=== PATIENT | female | born 1930 | race Caucasian/White ===

== ENCOUNTER 2019-04-29 10:31 | Inpatient (IN) ==
[2019-04-29] MEDS ORDERED: MOM Conc 10 ML UD.LIQ PO PRN (15:27)
[2019-04-29] MEDS ORDERED: Naloxone 0.4 MG/ML INJ IVP PRN (15:27)
[2019-04-29] MEDS ORDERED: Ondansetron 4 MG/2 ML VIAL IVP PRN (15:27)
--- NOTE | 2019-04-29 15:38 | Orthopedic Consult Note ---
Date of Encounter: 04/29/19 Time of Encounter: 15:30 Assessment and Plan (1) Fracture of humerus, proximal, right, closed Current Visit: Yes Status: Acute Qualifiers: Encounter type: initial encounter Fracture morphology: other fracture Fracture alignment: displaced Qualified Code(s): S42.291A - Other displaced fracture of upper end of right humerus, initial encounter for closed fracture (2) Left elbow pain Current Visit: Yes Status: Acute (3) Left shoulder pain Current Visit: Yes Status: Acute Qualifiers: Chronicity: acute Qualified Code(s): M25.512 - Pain in left shoulder History of Present Illness Chief complaint: right arm pain HPI: Ms. Oconnor is a 88 year old female presenting to [facility] from [facility] in [place]. Her niece (KARISSA) is at bedside. Per niece's report, patient was admitted to [facility] for UTI and diverticulitis. She relates she was just discharged two weeks ago from [place] after a course of rehabilitation following diagnosis of these same conditions. She relates that earlier today patient was on commode and staff were beside her when she had a seizure. Per niece, staff held her upright until seizure resolved and while placing patient back to bed her right arm was dislocated and subsequently found to be fractured. Patient's niece states that she has had a a fracture of her left arm at some point requiring surgical fixation in the remote past. She also relates patient has a history of open heart surgery. She states patient is ne stephanie non-ambulatory and has not had a seizure in a very long time. Patient is a poor historian and not able to speak much though is able to shake head yes and no. She is hard of hearing. In discussion directly with patient, she relates that both of her arms are in pain at present. She denies a history of stroke. She admits to having difficulty finding her words. On exam, patient is lying comfortably in bed. Right arm in simple sling. No gross deformity noted to the right arm on visual inspection. Palpation reveals exquisite tenderness to the right upper arm. Hand and wrist motion intact. Bulk Loader strength equal bilaterally. Left arm inspection reveals large ecchymosis over the left elbow nearly circumferentially. No skin disruption noted. Tender to palpation over the left olecranon region and left anterior shoulder. Motion of left elbow and shoulder are limited with patient grimacing in pain with motion. Pronation/supination of left wrist leads to grimacing. Hand motion intact. No calf tenderness, erythema, or warmth to palpation bilaterally. Neurovascualrly intact with intact ankle motion to bilateral ankles. Patient seen at bedside with Dr. Sravan Carrizales. Patient will require cardiac consultation. Case discussed with Dr. Gonzales. Patient has an operative right displaced humerus fracture. Recommendation for reverse total shoulder replacement of the right shoulder. Informed consent reviewed and obtained from patient's niece who is her POA after all questions and concerns were addressed to her satisfaction. Patient will be NPO after midnight 8/15 in anticipation of surgical intervention for her right shoulder. Xrays of the left shoulder and elbow will be obtained as patient is expressing pain of this region. Thank you for this consultation. Please reach out with any questions or concerns regarding patient's orthopedic care. Past Med Surg Social Fam HX - Family History Mother Hx Family Cardiac Disorders: Yes (CABG) Medications and Allergies Ferrous Sulfate [Iron] 325 mg PO DAILY 04/29/19 [History] LORazepam [Ativan] 0.5 mg PO DAILY PRN 04/29/19 [History] Metoprolol Tartrate 25 mg PO BID 04/29/19 [History] Pantoprazole Sodium [Protonix] 40 mg PO DAILY 04/29/19 [History] Phenytoin Sodium Extended [Phenytek] 100 mg PO BID 04/29/19 [History] Sertraline HCl [Zoloft] 50 mg PO DAILY 04/29/19 [History] Allergy/AdvReac Type Severity Reaction Status Date / Time alendronate sodium Allergy See Verified 04/29/19 16:17 [From Fosamax] Comments atorvastatin [From Lipitor] Allergy See Verified 04/29/19 16:17 Comments ibandronate sodium Allergy See Verified 04/29/19 16:17 [From Boniva] Comments morphine Allergy See Verified 04/29/19 16:17 Comments Penicillins Allergy See Verified 04/29/19 16:17 Comments Procaine [From Novocain] Allergy See Verified 04/29/19 16:17 Comments simvastatin [From Zocor] Allergy See Verified 04/29/19 16:17 Comments Sulfa (Sulfonamide Allergy See Verified 04/29/19 16:17 Antibiotics) Comments tuberculin,PPD,multi-puncture Allergy See Verified 04/29/19 16:17 Comments All Systems Reviewed: The remainder of the systems were reviewed and are negative Physical Exam - Constitutional Vitals: Temp Pulse Resp BP Pulse Ox 98.0 F 60 14 95/59 93 04/29/19 15:23 04/29/19 15:23 04/29/19 15:23 04/29/19 15:23 04/29/19 15:23 Results - Labs Result Diagrams: 04/30/19 04:38 04/30/19 04:38 Labs: All other labs normal. Consult Discharge Plan - Plan Referrals: NONE,PCP [Primary Care Provider] -
[2019-04-29] MEDS ORDERED: *HR* LORazepam 0.5 MG TABLET PO PRN (17:00)
--- NOTE | 2019-04-29 18:01 | Internal Med History&Physical ---
Date of Encounter: 04/29/19 Time of Encounter: 16:30 Internal Medicine - H&P: HPI Chief complaint: Broken arm Admitted From: Hospital to Hospital Transfer Plans for Post Hospital Care: Transfer [facility] Facility History of present illness: Ms. Oconnor is a 88 year old female transferred from [facility] with fracture R humerus. Ms Oconnor was admitted to [facility] due to acute UTI and diverticulitis. She had been improving but today got up to bedside commode and had an acute seizure. She has previous hx of seizures but has not had an event in a while. Dilantin levels noted to be low. Niece stated that when she was moved back to her bed she developed R arm pain and was found to have fracture of R humerus with dislocation. She was transferred for repair. At this time she is resting in bed. Her niece stated she had symptoms of GERD and reflux but is unsure of chest pain. Patient unable to give much history at this time. She has hx of chronic a fib on no anticoagulation. Labs from [facility] - UA negative, Urine cx Klebsiella S to Cipro, Hgb 13.3 today. WBC 13 today. Past Med Surg Social Fam HX - Past Medical History Source: patient, old records reviewed Medical history: arthritis, atrial fibrillation, GERD, hyperlipidemia, hypertension, osteoporosis, RA, TIA Additional medical history: Diverticulitis, seizures, UTI, tremors, unsure of + TB test but not active. Psychiatric history: anxiety - Past Surgical History Surgical History: angioplasty/stent, appendectomy, cataract, cholecystectomy, coronary bypass (CABG), hysterectomy, FLORENCE/BSO Additional surgical history: Left shoulder surgery - Social History Smoking Status: Former smoker Smokeless Tobacco Status: No Alcohol use: none Drug use: none - Family History Mother Hx Family Cardiac Disorders: Yes (CABG) Internal Medicine - H&P: Meds Ferrous Sulfate [Iron] 325 mg PO DAILY 04/29/19 [History] LORazepam [Ativan] 0.5 mg PO DAILY PRN 04/29/19 [History] Metoprolol Tartrate 25 mg PO BID 04/29/19 [History] Pantoprazole Sodium [Protonix] 40 mg PO DAILY 04/29/19 [History] Phenytoin Sodium Extended [Phenytek] 100 mg PO BID 04/29/19 [History] Sertraline HCl [Zoloft] 50 mg PO DAILY 04/29/19 [History] Allergy/AdvReac Type Severity Reaction Status Date / Time alendronate sodium Allergy See Verified 04/29/19 16:17 [From Fosamax] Comments atorvastatin [From Lipitor] Allergy See Verified 04/29/19 16:17 Comments ibandronate sodium Allergy See Verified 04/29/19 16:17 [From Boniva] Comments morphine Allergy See Verified 04/29/19 16:17 Comments Penicillins Allergy See Verified 04/29/19 16:17 Comments Procaine [From Novocain] Allergy See Verified 04/29/19 16:17 Comments simvastatin [From Zocor] Allergy See Verified 04/29/19 16:17 Comments Sulfa (Sulfonamide Allergy See Verified 04/29/19 16:17 Antibiotics) Comments tuberculin,PPD,multi-puncture Allergy See Verified 04/29/19 16:17 Comments ROS unobtainable: due to mental status All Systems PM: A 10-system review of systems was performed and is negative for pertinent findings except as documented above in the HPI. - Constitutional Constitutional: lethargy - EENT Eyes: no diplopia, no pain Ears: decreased hearing Nose, mouth and throat: no mouth pain, no sinus pain - Cardiovascular Cardiovascular ROS IM: dyspnea, no chest pain, no lightheadedness - Respiratory Respiratory: dyspnea, dyspnea on exertion, chest congestion - Gastrointestinal Gastrointestinal: abdominal pain, no diarrhea, no melena, no nausea, no vomiting - Genitourinary Genitourinary: dysuria, urinary incontinence - Musculoskeletal Musculoskeletal ROS IM: arthralgias, no joint swelling - Integumentary Integumentary IM: no erythema, no rash - Neurological Neurological ROS: convulsions, no weakness - Endocrine Endocrine IM: no excessive sweating - Hematologic/Lymphatic Hematologic/Lymphatic: no easy bleeding - Allergic/Immunologic Allergic/Immunologic: no tongue swelling - Constitutional Vitals: Temp Pulse Resp BP Pulse Ox 98.0 F 60 14 95/59 93 04/29/19 15:23 04/29/19 15:23 04/29/19 15:23 04/29/19 15:23 04/29/19 15:23 General appearance: Present: A&O X 3 Exam: See below. pt hard to hear and understand - Head Head exam: Present: normocephalic - Eye Eye exam: Present: EOMI, conjuntiva pink - ENT ENT exam: Present: mucous membranes dry - Neck Neck exam general surgery: Present: normal inspection, supple - Respiratory Respiratory exam: Present: rales (anteriorly). Absent: rhonchi, wheezes - Cardiovascular Cardiovascular exam: Present: irregular rhythm - GI/Abdominal GI/Abdominal exam: Present: soft, tenderness (diffuse worse in LL) - Extremities Exam Extremities exam: Present: warm Additional comments: Ecchymosis and tenderness bilateral UE - Neurological Exam Neurological exam: Present: alert - Skin Skin exam: Present: warm. Absent: rash - Assessment and Plan (1) Fracture of humerus, proximal, right, closed Current Visit: Yes Status: Acute Assessment and plan: Pt transferred from [facility] due to acute fracture of R humerus with displacement. Admit to med surg. Ortho eval. Will need surgical treatment. Will ask cardiology for input regarding clearance. Pain control. Sling. Further plan per ortho. Qualifiers: Encounter type: initial encounter Fracture morphology: other fracture Fracture alignment: displaced Qualified Code(s): S42.291A - Other displaced fracture of upper end of right humerus, initial encounter for closed fracture (2) Seizure disorder Current Visit: Yes Status: Chronic Assessment and plan: Pt had acute seizure at [facility] - dilantin level low and was on quinolone (? low seizure threshold) Loaded with IV Dilantin and dose increased. (3) Atrial fibrillation Current Visit: Yes Status: Chronic Assessment and plan: Currently rate controlled. Not on anticoagulation. Cardiology eval pre op. Echo ordered. Qualifiers: Atrial fibrillation type: chronic Qualified Code(s): I48.2 - Chronic atrial fibrillation (4) UTI (urinary tract infection) Current Visit: Yes Status: Acute Assessment and plan: Pt recently diagnoses with Klebsiella UTI. Will repeat UA/C&S Qualifiers: Urinary tract infection type: acute cystitis Hematuria presence: without hematuria Qualified Code(s): N30.00 - Acute cystitis without hematuria (5) Acute diverticulitis Current Visit: Yes Status: Acute Assessment and plan: Pt has been on Cipro/Flagyl Consider rescan to reassess. (6) Hypertension Current Visit: Yes Status: Chronic Assessment and plan: Continue home meds. Qualifiers: Hypertension type: essential hypertension Qualified Code(s): I10 - Essential (primary) hypertension (7) GERD (gastroesophageal reflux disease) Current Visit: Yes Status: Chronic Assessment and plan: Continue PPI Qualifiers: Esophagitis presence: esophagitis presence not specified Qualified Code(s): K21.9 - Gastro-esophageal reflux disease without esophagitis - Time Spent With Patient Total time spent is greater than 50% in coordination of care (as documented) at patient's floor/unit and/or counseling patient:
[2019-04-29] MEDS ORDERED: *HR* Heparin 5,000 UNIT/ML VIAL SQ SCH (18:47)
--- NOTE | 2019-04-29 19:35 | Anesthesia Evaluation PreOp ---
Date of Encounter: 04/29/19 Time of Encounter: 19:44 - Past History Planned Operation: R-Total shoulder Cardiac History: HTN, Hyperlipidemia, Arrhythmia (Chronic AFib. NOT anticoagulated), Cardiac Surgery (1992) Pulmonary History: Former smoker [employer]IAN History: Seizures (Hx Sz. Acute Seizure while at Bedside commode [[facility]] transferred here to [facility] for surgical repair R-humerus note after Seizure), TIA, Other (PT VERY HARD OF HEARING) Other Medical History: Renal (newly Dx Klebsiella UTI [this admission]), GERD, Other (RA) Anesthesia History: No Prior Anesthetic Complications, Past Anesthesia (Angioplasty/Stent, Appy, Cataract, Brittney, CABG, FLORENCE/BSO, L-shoulder surgery), Problems (NOVACAINE ALLERGY. PT UNSURE OF REACTION) Alcohol Use: none Drug use: none Medications and Allergies Ferrous Sulfate [Iron] 325 mg PO DAILY 04/29/19 [History] LORazepam [Ativan] 0.5 mg PO DAILY PRN 04/29/19 [History] Metoprolol Tartrate 25 mg PO BID 04/29/19 [History] Pantoprazole Sodium [Protonix] 40 mg PO DAILY 04/29/19 [History] Phenytoin Sodium Extended [Phenytek] 100 mg PO BID 04/29/19 [History] Sertraline HCl [Zoloft] 50 mg PO DAILY 04/29/19 [History] Allergy/AdvReac Type Severity Reaction Status Date / Time alendronate sodium Allergy See Verified 04/29/19 16:17 [From Fosamax] Comments atorvastatin [From Lipitor] Allergy See Verified 04/29/19 16:17 Comments ibandronate sodium Allergy See Verified 04/29/19 16:17 [From Boniva] Comments morphine Allergy See Verified 04/29/19 16:17 Comments Penicillins Allergy See Verified 04/29/19 16:17 Comments Procaine [From Novocain] Allergy See Verified 04/29/19 16:17 Comments simvastatin [From Zocor] Allergy See Verified 04/29/19 16:17 Comments Sulfa (Sulfonamide Allergy See Verified 04/29/19 16:17 Antibiotics) Comments tuberculin,PPD,multi-puncture Allergy See Verified 04/29/19 16:17 Comments - Meds/Allergy Pre-op Review Medications Reviewed: Yes Allergies Reviewed: Yes Beta Blockers on Current Med List: Yes (Metoprolol) Anesthesia Results - Labs Impressions Elbow X-Ray 04/29/19 16:45 IMPRESSION: Left shoulder: Inferior displacement of the distal clavicle relative to the acromion, raising the possibility of an AC injury. No acute fracture or dislocation is seen otherwise. Left elbow: Negative. D/ / William Urrutia MD / William Urrutia MD Interpreting Provider: William Urrutia MD Shoulder X-Ray 04/29/19 16:45 IMPRESSION: Left shoulder: Inferior displacement of the distal clavicle relative to the acromion, raising the possibility of an AC injury. No acute fracture or dislocation is seen otherwise. Left elbow: Negative. D/ / William Urrutia MD / William Urrutia MD Interpreting Provider: William Urrutia MD Anesthesia Exam Vital Signs Temp Pulse Resp BP Pulse Ox 04/29/19 19:35 97.7 F 63 16 116/64 93 04/29/19 15:23 98.0 F 60 14 95/59 93 Intake and Output 04/29/19 04/29/19 04/29/19 07:59 15:59 23:59 Other: Weight 68.8 kg Patient Weight 04/29/19 23:59 Weight 68.8 kg Height: 5'2" Weight: 151# BMI = 28 NPO (# of Hours): MNoc - HEENT Pupil (Motor): Pupils equal, EOMI - [employer] LOC: Oriented [employer] Motor: Normal RUE, Normal LUE, Normal RLE, Normal LLE, Normal Face [employer] Sensory: Normal: RUE, LUE, RLE, LLE, Face - Cardiac Rhythm: Irregular Murmur: None JVD: No - Pulmonary Breath Sounds: bilateral Clear (Pt tachypneic RR >40 during examination. RN notified) Respiratory Effort: Symmetrical Anesthesia Assess/Plan ASA Score: 3 (CAD, HTN, Chol, Chronic AFib, Sz disorder, + new UTI) Level of consciousness: Cooperative, Oriented, Tranquil Anesthetic Plan: General, Regional Nerve Block Regional Nerve Block Plan: Supraclavicular Monitoring Plan: Standard Monitors Recovery Plan: PACU Anes Supervising Prov Stmt: Pt seen/evaluated, R&B Discussed, questions answered and consent obtained - MD Carla
[2019-04-29] MEDS ORDERED: Perflutren Lipid Microsphere 1.3 ML in 0.9 % Sodium Chloride 8.7 ML IVP ONE (19:42)
[2019-04-29] MEDS ORDERED: *HR* LORazepam 2 MG/ML VIAL IVP ONE (21:40)
[2019-04-29] MEDS ORDERED: *HR* LORazepam 2 MG/ML VIAL ONE (21:43)
[2019-04-29] MEDS ORDERED: Nitroglycerin 0.4 MG TAB.SUBL SL ONE (21:44)
[2019-04-29] MEDS ORDERED: Nitroglycerin 0.4 MG TAB.SUBL SL PRN (21:46)
[2019-04-29] MEDS: MetroNIDAZOLE 500 MG/100 ML 500 MG/100 ML BAG IVPB SCH (23:08)
--- NOTE | 2019-04-30 04:47 | Event Note ---
Date of Encounter: 04/29/19 Time of Encounter: 20:24 Alerted by patient's nurse YONY Landaverde that the patient was experiencing chest pain, shortness of breath, and signs of anxiety. Went to see patient who is resting in bed and reporting pressure in the center of her chest. Patient reported previous cardiac history. Stat troponin ordered. Stat CXR 1 view portable ordered. SL nitroglycerin when necessary ordered. One-time dose of Ativan 0.5 mg IVP ordered. EKG ordered which showed sinus bradycardia with sinus arrhythmia, ST deviation and moderate T-wave abnormality. Consider lateral ischemia. Initial troponin 0.05. Trending 2. After initial SL nitroglycerin, nurse reported patient was resting more comfortably and reporting improvement in chest pain. Echocardiogram completed at this time. Will continue to monitor patient closely overnight.
[2019-04-30] MEDS: MetroNIDAZOLE 500 MG/100 ML 500 MG/100 ML BAG IVPB SCH ×3 (05:11→21:30)
[2019-04-30 05:19] LABS: Hematocrit 35.4 % (35.3-44.9); Hemoglobin 10.8 g/dL (11.5-15.4); Mean Corpuscular HGB Conc 30.5 g/dL (31.6-35.5); Mean Corpuscular Hemoglobin 26.6 pg (28.0-33.3); Mean Corpuscular Volume 87.2 fL (83.0-100.0); Mean Platelet Volume 9.3 fL (9.4-12.4); Platelet Count 223 K/mcL (140-400); Red Blood Count 4.06 M/mcL (3.82-4.97); White Blood Count 8.6 K/mcL (4.3-11.1)
[2019-04-30 05:44] LABS: BUN/Creatinine Ratio 13 (6-26); Blood Urea Nitrogen 10 mg/dL (8-23); Carbon Dioxide 23 mEq/L (23-29); Chloride 106 mEq/L (98-107); Glucose 99 mg/dL (70-105); Osmolality,Calculated 287 (280-300); Potassium 3.7 mEq/L (3.5-5.1); Sodium 139 mEq/L (136-145); eGFR For African Americans > 60 (> 60); eGFR For Non-African Americans > 60 (> 60)
--- NOTE | 2019-04-30 07:45 | Orthopedics Progress Note ---
Date of Encounter: 04/30/19 Time of Encounter: 07:44 Subjective Interval history: Patient seen this morning, with fracture dislocation right shoulder. Recommendations for right total shoulder replacement reverse bone socket, patient will undergo surgery when cleared. Objective Vital signs: Vital Signs Temp Pulse Resp BP Pulse Ox 04/30/19 06:34 98.5 F 60 20 130/54 96 04/30/19 02:46 98.5 F 62 20 157/69 98 04/29/19 23:20 98.2 F 58 20 125/66 95 04/29/19 19:35 97.7 F 63 16 116/64 93 04/29/19 15:23 98.0 F 60 14 95/59 93 Intake and Output 04/29/19 04/29/19 04/30/19 15:59 23:59 07:59 Intake Total 200 / 200 100 / 100 Balance 200 / 200 100 / 100 Intake: IV Fluids 200 / 200 100 / 100 Cipro Premix 400 MG/200 ML 400 200 / 200 mg In 200 ml @ 200 mls/hr IVPB Q12HR [facility] Rx#:[id number] Flagyl Premix 500 MG/100 ML 500 100 / 100 mg In 100 ml @ 100 mls/hr IVPB Q8H [facility] Rx#:[id number] Other: # Urine Diapers 2 Weight 68.8 kg 68.7 kg Patient Weight 04/30/19 23:59 Weight 68.7 kg - Labs CBC & BMP: 04/30/19 04:38 04/30/19 04:38 Labs: Abnormal lab results Hgb 10.8 g/dL (11.5-15.4) L 04/30/19 04:38 MCH 26.6 pg (28.0-33.3) L 04/30/19 04:38 MCHC 30.5 g/dL (31.6-35.5) L 04/30/19 04:38 MPV 9.3 fL (9.4-12.4) L 04/30/19 04:38 Calcium 8.0 mg/dL (8.6-10.3) L 04/30/19 04:38 Troponin I 0.04 ng/mL (< 0.04) H* 04/30/19 04:38 Consult Discharge Plan - Plan Referrals: NONE,PCP [Primary Care Provider] -
--- NOTE | 2019-04-30 08:47 | Internal Med Progress Note ---
Hospitalist Progress Note - Encounter Date of Encounter: 04/30/19 Time of Encounter: 08:39 - Subjective Interval History: Ms Oconnor last night was complaining of chest pain, per the event note no echo signs about anxiety. A stat troponin was slightly elevated at 0.05 trended down to 0.04 she was treated with one-time dose of Ativan 0.5. Reviewed the EKG from yesterday dated 04/29/2019 21:32- sinus bradycardia rate at 57, with ST depression and T-wave inversion noted in limb lead 1 aVL V4 V5 and V6. Patient this morning denies any chest pain. She does state that she is able to complete ADLs but does not perform any strenuous activity-she has no stairs in her home she does not go grocery shopping but does not attribute her failure to perform these task as being attributed to dyspnea. How metabolic equivalents likely less than 4. She rates her pain is tolerable with po analgesia GEN: Denies fever, chills or malaise HEENT: Denies headache blurriness, or dysphagia RESP: Denies SOB or cough CV: Denies chest pain or palpitations GI: Denies Nausea, vomiting, diarrhea or constipation Reviewed current in hospital medications with modifications see orders Reviewed Routine labs - Exam Vitals: Temp Pulse Resp BP Pulse Ox 98.5 F 60 20 130/54 96 04/30/19 06:34 04/30/19 06:34 04/30/19 06:34 04/30/19 06:34 04/30/19 06:34 Exam: GEN: NAD, A&O x 3, Pleasant and conversant SKIN: Vineyard warm acyanotic not jaundice, thin fragile few ecchymosis noted in left upper extremity HEART: RRR somewhat bradycardic, no murmurs, old healed sternotomy scar noted LUNGS: Coarse but also diminished no wheeze or scattered crackles, overall non labored ABDOMEN; Soft, non tender or distended, BS x 4 normactive EXT: No LE edema, Pedal pulses 1+, radial pulses 2+, right upper extremity in a sling PSYCH: Mood and affect is appropriate - Assessment and Plan (1) Troponin I above reference range Current Visit: Yes Status: Acute Assessment and Plan: Patient last night was completed and no chest pain, Reviewed the EKG from yesterday dated 04/29/2019 21:32- sinus bradycardia rate at 57, with ST depression and T-wave inversion noted in limb lead 1 aVL V4 V5 and V6. Patient this morning denies any chest pain, given her history of CAD status post CABG many years ago her troponin was trended 0.05, 0.04 , cardiology consult is pending (2) CAD (coronary artery disease) Current Visit: Yes Status: Acute Assessment and Plan: history of CABG, she is only on the metoprolol tartrate she will benefit from statin therapy, asa ,RAFFI inhibitor as well as optimize her medical regimen (3) Fracture of humerus, proximal, right, closed Current Visit: Yes Status: Acute Assessment and Plan: Pt transferred from [facility] due to acute fracture of R humerus with displacement. Admit to med surg. Ortho plan for surgical intervention however cardiac clearance is deemed necessary given high complaints of chest pain yesterday and mildly elevated troponin. Her metabolic equivalent is less than 4. cardiology consultation is pending (4) Atrial fibrillation Current Visit: Yes Status: Chronic Assessment and Plan: EKG last month does reveal normal sinus rhythm although bradycardic upon review of her home medications not currently on any anticoagulation therapy although she is on metoprolol 25 twice a day continue to monitor on telemetry (5) UTI (urinary tract infection) Current Visit: Yes Status: Acute Assessment and Plan: Pt recently diagnoses with Klebsiella UTI. At [facility] and I believe was started on antibiotic treatment she is afebrile denies dysuria and has no leukocytosis she is currently on Flagyl and ciprofloxacin for diverticulitis (6) Acute diverticulitis Current Visit: Yes Status: Acute Assessment and Plan: Pt has been on Cipro/Flagy, we will review records and likely treat for 10 days total (7) Hypertension Current Visit: Yes Status: Chronic Assessment and Plan: Normotensive only on metoprolol (8) GERD (gastroesophageal reflux disease) Current Visit: Yes Status: Chronic Assessment and Plan: Continue PPI (9) Seizure disorder Current Visit: Yes Status: Chronic Assessment and Plan: Pt had acute seizure at [facility] - dilantin level low and was on quinolone (? low seizure threshold), Loaded with IV Dilantin and dose increased. Prior to seizures at [facility] patient denies any frequency seizure activity, a phenytoin level is now therapeutic we will continue therapy and place patient on seizure p rotocol DVT Prophylaxis: SCDs - Time Spent with Patient Total time spent is greater than 50% in coordination of care (as documented) at patient's floor/unit and/or counseling patient: Internal Medicine: Result - Labs CBC & Chem 7: 04/30/19 04:38 04/30/19 04:38 Labs: Short CBC 04/30/19 Range/Units 04:38 WBC 8.6 (4.3-11.1) K/mcL Hgb 10.8 L (11.5-15.4) g/dL Hct 35.4 (35.3-44.9) % Plt Count 223 (140-400) K/mcL BMP 04/30/19 04:38 Sodium 139 Potassium 3.7 Chloride 106 Carbon Dioxide 23 BUN 10 Creatinine 0.80 Glucose 99 Calcium 8.0 L Cardiac Enzymes 04/29/19 04/30/19 Range/Units 21:40 04:38 Troponin I 0.05 H* 0.04 H* (< 0.04) ng/mL - Impressions Impressions Elbow X-Ray 04/29/19 16:45 IMPRESSION: Left shoulder: Inferior displacement of the distal clavicle relative to the acromion, raising the possibility of an AC injury. No acute fracture or dislocation is seen otherwise. Left elbow: Negative. D/ / William Urrutia MD / William Urrutia MD Interpreting Provider: William Urrutia MD Shoulder X-Ray 04/29/19 16:45 IMPRESSION: Left shoulder: Inferior displacement of the distal clavicle relative to the acromion, raising the possibility of an AC injury. No acute fracture or dislocation is seen otherwise. Left elbow: Negative. D/ / William Urrutia MD / William Urrutia MD Interpreting Provider: William Urrutia MD Chest X-Ray 04/29/19 21:39 IMPRESSION: Right basilar airspace disease, atelectasis versus pneumonia versus asymmetric edema. Pulmonary vascular congestion. Age-indeterminate but probably subacute to chronic right proximal humeral fracture. Correlate with any clinical evidence of acute right shoulder pain. D/ / William Urrutia MD / William Urrutia MD Interpreting Provider: William Urrutia MD Consult Discharge Plan - Plan Referrals: NONE,PCP [Primary Care Provider] - (2) CAD (coronary artery disease) Qualifiers: Coronary Disease-Associated Artery/Lesion type: bypass graft [place] vs. transplanted heart: [place] heart Associated angina: with other forms of angina Qualified Code(s): I25.708 - Atherosclerosis of coronary artery bypass graft(s), unspecified, with other forms of angina pectoris (3) Fracture of humerus, proximal, right, closed Qualifiers: Encounter type: initial encounter Fracture morphology: other fracture Fracture alignment: displaced Qualified Code(s): S42.291A - Other displaced fracture of upper end of right humerus, initial encounter for closed fracture (4) Atrial fibrillation Qualifiers: Atrial fibrillation type: chronic Qualified Code(s): I48.2 - Chronic atrial fibrillation (5) UTI (urinary tract infection) Qualifiers: Urinary tract infection type: acute cystitis Hematuria presence: without hematuria Qualified Code(s): N30.00 - Acute cystitis without hematuria (7) Hypertension Qualifiers: Hypertension type: essential hypertension Qualified Code(s): I10 - Essential (primary) hypertension (8) GERD (gastroesophageal reflux disease) Qualifiers: Esophagitis presence: esophagitis presence not specified Qualified Code(s): K21.9 - Gastro-esophageal reflux disease without esophagitis
--- NOTE | 2019-04-30 10:57 | Cardiology Consult Note ---
<Silas Means - Last Filed: 04/30/19 14:12> Date of Encounter: 04/30/19 Time of Encounter: 10:54 Assessment and Plan (1) Pre-operative cardiovascular examination Current Visit: Yes Status: Acute Patient presents after fall from seizure and is found to have right humerus fracture. There is plan for reverse total shoulder with Dr. Gonzales later today. Cardiology asked to risk stratify patient prior to surgery. H/o CAD s/p CABG in 2002. EKG shows SR with non-specefic T wave changes unchanged from prior EKG in 2006. Echocardiogram shows preserved EF and no WMA. Minimal cardiac symptoms. No further testing recommended at this time. Testing reviewed with Dr. Atif Shafer. Intermediate risk for intermediate risk surgery. (2) Fracture of humerus, proximal, right, closed Current Visit: Yes Status: Acute Qualifiers: Encounter type: initial encounter Fracture morphology: other fracture Fracture alignment: displaced Qualified Code(s): S42.291A - Other displaced fracture of upper end of right humerus, initial encounter for closed fracture (3) CAD (coronary artery disease) Current Visit: Yes Status: Acute H/o 2V CABG at [facility] Recommend asa and bb as tolerated. H/o allergy to statin. Qualifiers: Coronary Disease-Associated Artery/Lesion type: bypass graft [place] vs. transplanted heart: [place] heart Associated angina: with other forms of angina Qualified Code(s): I25.708 - Atherosclerosis of coronary artery bypass graft(s), unspecified, with other forms of angina pectoris Discussion w patient/family: Discussed cardiology consult for surgery clearance; previous chest pain episode this admission reviewed and discussed; possibly related to anxiety; Ativan given and resolved. Denies chest pain, SOB, dizziness, pedal edema. Unable to ambulate at this time d/t weakness. Patient is a poor historian with no family present. History of Present Illness Consult date: 04/30/19 Requesting physician: Dean Gonzales Consult reason: cardiac clearance Chief complaint: humerus fx History of present illness: Ms. Oconnor is a 88 year old female from [facility] in [place]. Per niece (POA) admitted to [facility] for UTI and diverticulitis. Recently discharged x 2 weeks from [place] (rehabilitation) following diagnosis of same conditions. She relates that earlier today patient was on commode and staff were beside her when she had a seizure. Per niece, staff held her upright until seizure resolved and while placing patient back to bed her right arm was dislocated and subsequently found to be fractured. Patient's niece states that she has had a a fracture of her left arm at some point requiring surgical fixation in the remote past. She also relates patient has a history of open heart surgery. She states patient is nearly non-ambulatory and has not had a seizure in a very long time. Patient is a poor historian and not able to speak much though is able to shake head yes and no. Patient c/o chest aching last night due to feeling tired. Notes some SOB with activity over last month. Otherwise no chest pain in the past few weeks. Presents with hx of CABG 2002 with no other cardiac events noted; Previous chest pain event this stay reviewed and discussed; denies chest pain at time, was given ativan and issue resolved. Denies current chest pain, SOB, dizziness, pedal edema, Past Med Surg Social Fam HX - Past Medical History Medical history: arthritis, atrial fibrillation, GERD, hyperlipidemia, hyp ertension, osteoporosis, RA, TIA Additional medical history: Diverticulitis, seizures, UTI, tremors, unsure of + TB test but not active. Psychiatric history: anxiety - Past Surgical History Surgical History: angioplasty/stent, appendectomy, cataract, cholecystectomy, coronary bypass (CABG), hysterectomy, [place]/BSO Additional surgical history: Left shoulder surgery - Social History Smoking Status: Former smoker Smokeless Tobacco Status: No Alcohol use: none Drug use: none - Family History Mother Hx Family Cardiac Disorders: Yes (CABG) Medications and Allergies Ferrous Sulfate [Iron] 325 mg PO DAILY 04/29/19 [History] LORazepam [Ativan] 0.5 mg PO DAILY PRN 04/29/19 [History] Pantoprazole Sodium [Protonix] 40 mg PO DAILY 04/29/19 [History] Acetaminophen [Pain Relief] 500 mg PO Q6H 7 Days #28 tablet 04/30/19 [Rx] Docusate [Colace] 100 mg PO BID 5 Days #10 capsule 04/30/19 [Rx] Ibuprofen [Motrin] 600 mg PO Q6HR PRN 7 Days #28 tab 04/30/19 [Rx] Metoprolol [Lopressor] 25 mg PO BID 04/30/19 [History] Phenytoin ER [Dilantin ER] 100 mg PO BID 04/30/19 [History] Sertraline [Zoloft] 50 mg PO DAILY 04/30/19 [History] Allergy/AdvReac Type Severity Reaction Status Date / Time alendronate sodium Allergy See Verified 04/29/19 16:17 [From Fosamax] Comments atorvastatin [From Lipitor] Allergy See Verified 04/29/19 16:17 Comments ibandronate sodium Allergy See Verified 04/29/19 16:17 [From Boniva] Comments morphine Allergy See Verified 04/29/19 16:17 Comments Penicillins Allergy See Verified 04/29/19 16:17 Comments Procaine [From Novocain] Allergy See Verified 04/29/19 16:17 Comments simvastatin [From Zocor] Allergy See Verified 04/29/19 16:17 Comments Sulfa (Sulfonamide Allergy See Verified 04/29/19 16:17 Antibiotics) Comments tuberculin,PPD,multi-puncture Allergy See Verified 04/29/19 16:17 Comments All Systems Review: The remainder of the systems were reviewed and are negative - Constitutional Constitutional: weakness - Cardiovascular Cardiovascular: slow heart rate (bradycardia) Physical Examination Echocardiogram 04/29/19 16:59 Impressions: LVEF 60-65%. Moderate left ventricular diastolic dysfunction. Normal right ventricular structure and function. Bi-atrial enlargement. Mild mitral regurgitation. Mild tricuspid regurgitation. Mild pulmonic regurgitation. Mild pulmonary hypertension. Chest X-Ray 04/29/19 21:39 IMPRESSION: Right basilar airspace disease, atelectasis versus pneumonia versus asymmetric edema. Pulmonary vascular congestion. General: No Apparent Distress HEENT: Atraumatic Neck: No JVD Cardiac: No Murmur Lungs: Normal Breath Sounds Neuro: Alert and responsive Skin: No rashes noted on visualized skin Musculoskeletal: No Chest Wall Tenderness Extremities: No Edema Results 04/30/19 04:38 04/30/19 04:38 Lab Results 04/29/19 04/30/19 04/30/19 21:40 04:38 04:38 WBC 8.6 Hgb 10.8 L Hct 35.4 Plt Count 223 Sodium 139 Potassium 3.7 Chloride 106 Carbon Dioxide 23 BUN 10 Creatinine 0.80 Glucose 99 Calcium 8.0 L Magnesium 2.0 Troponin I 0.05 H* 04/30/19 04:38 WBC Hgb Hct Plt Count Sodium Potassium Chloride Carbon Dioxide BUN Creatinine Glucose Calcium Magnesium Troponin I 0.04 H* - Imaging and Cardiology Chest Xray: report reviewed Echo: report reviewed - EKG Interpretation EKG results cardiology: personally reviewed (Sinus bradycardia) Consult Discharge Plan - Plan Referrals: NONE,PCP [Primary Care Provider] - Prescriptions: Docusate [Colace] 100 mg PO BID 5 Days #10 capsule Ibuprofen [Motrin] 600 mg PO Q6HR PRN 7 Days #28 tab PRN Reason: Pain Acetaminophen [Pain Relief] 500 mg PO Q6H 7 Days #28 tablet <Atif Shafer - Last Filed: 04/30/19 14:44> Date of Encounter: 04/30/19 - Attending Attestation I have personally performed a face to face evaluation on this patient. I have reviewed and agree with the care plan. History and Exam by me shows: 88 YO who fell after having a siezure. Suffered a fracture and will need surgery today. She has a cardiac history but no recent workup. She does have s ome SOB but this seems to be fairly chronic. EKG shows no acute changes and cardiac enzymes negative. She is moderate risk for surgery based on known cardiac history. Will check echo but no further cardiac testing will be needed. Assessment and Plan Discussion w patient/family: The assessment and plan as outlined above was discussed with the patient and/or family members who expressed understanding and agreement. All questions were answered. Thank you for involving us in the care of your patient. Please call with any questions. History of Present Illness History of present illness: Ms. Oconnor is a 88 year old female All Systems Review: The remainder of the systems were reviewed and are negative Physical Examination Vital Signs, Last 4 Hours Temp Pulse Resp BP Pulse Ox 04/30/19 11:39 98.5 F 58 16 113/44 96 Results 04/30/19 04:38 04/30/19 04:38 Lab Results 04/29/19 04/30/19 04/30/19 21:40 04:38 04:38 WBC 8.6 Hgb 10.8 L Hct 35.4 Plt Count 223 Sodium 139 Potassium 3.7 Chloride 106 Carbon Dioxide 23 BUN 10 Creatinine 0.80 Glucose 99 Calcium 8.0 L Magnesium 2.0 Troponin I 0.05 H* 04/30/19 04/30/19 04:38 10:20 WBC Hgb Hct Plt Count Sodium Potassium Chloride Carbon Dioxide BUN Creatinine Glucose Calcium Magnesium Troponin I 0.04 H* 0.03
--- NOTE | 2019-04-30 11:30 | Discharge Summary ---
Orders not resulted at time of discharge: Pending orders 04/29/19 18:45 UA w. reflex culture [Urinalysis Reflex Cult & Micro] [URIN] Routine 04/30/19 07:17 MRSA Surveillance Screen [MOLMIC] Stat Date of Encounter: 04/30/19 - Hospital Course Hospital course: Ms. Oconnor is a 88 year old female - Time Spent with Patient Total time spent providing and/or coordinating discharge services: - Discharge Medications Prescriptions: New Acetaminophen [Pain Relief] 500 mg PO Q6H 7 Days #28 tablet Docusate [Colace] 100 mg PO BID 5 Days #10 capsule Ibuprofen [Motrin] 600 mg PO Q6HR PRN 7 Days #28 tab PRN Reason: Pain No Action Pantoprazole Sodium [Protonix] 40 mg PO DAILY Ferrous Sulfate [Iron] 325 mg PO DAILY LORazepam [Ativan] 0.5 mg PO DAILY PRN PRN Reason: Anxiety Metoprolol [Lopressor] 25 mg PO BID Phenytoin ER [Dilantin ER] 100 mg PO BID Sertraline [Zoloft] 50 mg PO DAILY Home Medications: Ferrous Sulfate [Iron] 325 mg PO DAILY 04/29/19 [History] LORazepam [Ativan] 0.5 mg PO DAILY PRN 04/29/19 [History] Pantoprazole Sodium [Protonix] 40 mg PO DAILY 04/29/19 [History] Acetaminophen [Pain Relief] 500 mg PO Q6H 7 Days #28 tablet 04/30/19 [Rx] Docusate [Colace] 100 mg PO BID 5 Days #10 capsule 04/30/19 [Rx] Ibuprofen [Motrin] 600 mg PO Q6HR PRN 7 Days #28 tab 04/30/19 [Rx] Metoprolol [Lopressor] 25 mg PO BID 04/30/19 [History] Phenytoin ER [Dilantin ER] 100 mg PO BID 04/30/19 [History] Sertraline [Zoloft] 50 mg PO DAILY 04/30/19 [History] Allergies/Adverse Reactions: Allergy/AdvReac Type Severity Reaction Status Date / Time alendronate sodium Allergy See Verified 04/29/19 16:17 [From Fosamax] Comments atorvastatin [From Lipitor] Allergy See Verified 04/29/19 16:17 Comments ibandronate sodium Allergy See Verified 04/29/19 16:17 [From Boniva] Comments morphine Allergy See Verified 04/29/19 16:17 Comments Penicillins Allergy See Verified 04/29/19 16:17 Comments Procaine [From Novocain] Allergy See Verified 04/29/19 16:17 Comments simvastatin [From Zocor] Allergy See Verified 04/29/19 16:17 Comments Sulfa (Sulfonamide Allergy See Verified 04/29/19 16:17 Antibiotics) Comments tuberculin,PPD,multi-puncture Allergy See Verified 04/29/19 16:17 Comments Date of admission: 04/29/19 15:18 Primary care physician: PCP NONE Consults: 04/29/19 15:29 Consult to Occupational Therapy [CONS] Routine Comment: Evaluate, develop and implement POC Reason for Consult: Humerus fracture Does patient have active BEDREST order?: No Is patient medically & hemodynamically stable?: Yes Patient assessed for mobility or mobilized this visit?: Yes Consult to Physician [CONS] Routine Consulting Provider: Dean Gonzales Reason for Consult: Fracture humerus - notified by ED Call Completed: Yes 04/29/19 15:30 Consult to Factory Worker [CONS] Routine Reason for SW Consult: Discharge planning 04/29/19 16:35 Consult to Pastoral Services [CONS] Routine Comment: 04/29/19 16:59 Consult to Cardiology [CONS] Routine Comment: Consulting Provider: Cardiology [facility] Reason for Consult: Hx a fib. Shoulder fracture. Cardiac clearance please Call Completed: Yes Labs on day of discharge: Labs from last 24 hours 04/30/19 04/30/19 04/30/19 04:38 04:38 04:38 WBC RBC Hgb Hct MCV MCH MCHC RDW Plt Count MPV Sodium 139 Potassium 3.7 Chloride 106 Carbon Dioxide 23 BUN 10 Creatinine 0.80 Est GFR ( Amer) > 60 Est GFR (Non-Af Amer) > 60 BUN/Creatinine Ratio 13 Glucose 99 Calculated Osmolality 287 Calcium 8.0 L Magnesium 2.0 Troponin I 0.04 H* Phenytoin 13.4 04/30/19 04/29/19 04:38 21:40 WBC 8.6 RBC 4.06 Hgb 10.8 L Hct 35.4 MCV 87.2 MCH 26.6 L MCHC 30.5 L RDW TNP Plt Count 223 MPV 9.3 L Sodium Potassium Chloride Carbon Dioxide BUN Creatinine Est GFR ( Amer) Est GFR (Non-Af Amer) BUN/Creatinine Ratio Glucose Calculated Osmolality Calcium Magnesium Troponin I 0.05 H* Phenytoin - Impressions ITS Impressions Elbow X-Ray 04/29/19 16:45 IMPRESSION: Left shoulder: Inferior displacement of the distal clavicle relative to the acromion, raising the possibility of an AC injury. No acute fracture or dislocation is seen otherwise. Left elbow: Negative. D/ / William Urrutia MD / William Urrutia MD Interpreting Provider: William Urrutia MD Shoulder X-Ray 04/29/19 16:45 IMPRESSION: Left shoulder: Inferior displacement of the distal clavicle relative to the acromion, raising the possibility of an AC injury. No acute fracture or dislocation is seen otherwise. Left elbow: Negative. D/ / William Urrutia MD / William Urrutia MD Interpreting Provider: William Urrutia MD Echocardiogram 04/29/19 16:59 Impressions: LVEF 60-65%. Moderate left ventricular diastolic dysfunction. Normal right ventricular structure and function. Bi-atrial enlargement. Mild mitral regurgitation. Mild tricuspid regurgitation. Mild pulmonic regurgitation. Mild pulmonary hypertension. Left Ventricular Wall Motion: Rest Echo Findings All wall segments showed normal motion. Findings: Study Quality * Technically adequate exam. ECG Findings * Sinus bradycardia. Left Ventricle * LVEF 60-65%. * Normal LV chamber size, wall thickness and function. * Moderate left ventricular diastolic dysfunction. Right Ventricle * Normal right ventricular structure and function. Left Atrium * Moderately dilated left atrium. Right Atrium * Moderately dilated right atrium. Mitral Valve * No mitral stenosis. * Mildly calcified mitral valve leaflets. * Mild mitral regurgitation. Aortic Valve * No aortic regurgitation. * Aortic valve not well visualized. * No aortic stenosis. Tricuspid Valve * Tricuspid valve not well visualized. * Mild tricuspid regurgitation. Pulmonic Valve * Normal pulmonic valve structure. * No pulmonic stenosis. * Mild pulmonic regurgitation. Pulmonary Artery * Normal visualized portions of the main pulmonary artery. Aorta * Normally sized aortic root. Pericardium * There is no pericardial effusion present. Interatrial Septum * No evidence of PFO by color Doppler. IVC * The IVC is not well evaluated. Chest X-Ray 04/29/19 21:39 IMPRESSION: Right basilar airspace disease, atelectasis versus pneumonia versus asymmetric edema. Pulmonary vascular congestion. Age-indeterminate but probably subacute to chronic right proximal humeral fracture. Correlate with any clinical evidence of acute right shoulder pain. D/ / William Urrutia MD / William Urrutia MD Interpreting Provider: William Urrutia MD - Discharge Instructions Follow Up With: NONE,PCP [Primary Care Provider] -
[2019-04-30] MEDS ORDERED: Ropivacaine/PF 0.5% 30 ML VIAL ONE (15:06)
[2019-04-30] MEDS ORDERED: *HR* FentaNYL (PF) 100 MCG/2 ML VIAL ONE (15:06)
[2019-04-30] MEDS ORDERED: ROPIVACAINE/PF/NS 0.25% 1 EACH SYRINGE INTRAART ONE (15:07)
[2019-04-30] MEDS ORDERED: Clindamycin 900 MG/50 ML 900 MG/50 ML IV.SOLN IVPB ONE ×2 (15:45→15:51)
[2019-04-30] MEDS ORDERED: Ethanol\\Acetic Acid\\Na Ace\\Ben 1,000 ML IRRIG.SOLN IR ONE (16:13)
--- NOTE | 2019-04-30 17:21 | Orthopedic Operative Note ---
Date of procedure: 04/30/19 Pre-op diagnosis: Right shoulder fracture dislocation Post-op diagnosis: same Procedure: Procedure: Total Shoulder Replacment Reverse, right Estimated blood loss: 100 cc Hardware: Metal and polyethylene replacement: Arthrex 24, +4 , 35 mm screw glenoid baseplate, 4 locking 5.5 screw, with a 2+4 glenosphere, 8 humeral stem, poly insert 3 Exam Under anesthesia: Restricted motion Procedural Notes: Patient with a fracture-dislocation humeral head at the back of the shoulder. Posterior to the glenohumeral joint Operative procedure: The patient was brought to the operating room and placed on the operating room table. After general anesthesia was administered the operative shoulder was examined. Findings were noted. The patient was placed in the modified beachchair position. All pressure points were padded appropriately. And the head was stabilized in the neutral position. The operative extremity was prepped and draped in the sterile surgical fashion. The patient received IV antibiotics prior to skin incision. A standard deltopectoral approach was made to the operative shoulder. Incision was made to the skin and subcutaneous tissue,hemo stasis was obtained with Bovie cautery. Using careful blunt dissection the cephalic vein was identified and mobilized medially. The deltopectoral interval was developed and the clavipectoral fascia was incised. Normal anatomy was obliterated from the trauma, on entering the shoulder hematoma was removed, patient's humeral head was dislocated at the back of the shoulder. This was retrieved by retracting the humerus laterally. Anterior and posterior Bankart retractors were placed to expose the glenoid. The glenoid guide was seated and the centering hole was made. It was reamed with the appropriate reamer. The 24, +4, 25 mm screw, baseplate was seated and secured with 4 locking 5.5 screw. The baseplate was irrigated and dried and the 42+4 Glenosphere was seated and secured with the Maza taper. The Maza taper was tested and found to be secure, glenosphere fixation was secondarily secured with the central screw. The humerus was redislocated and prepared with the diaphyseal reamers, followed by a broaching process up to the appropriate size 8 in the patient's anatomic version. The metaphyseal reamer was then utilized. Trial reduction found the shoulder to be relocatable. Trial components were removed and 8 stem was impacted in place in the patient's anatomic version. Trial reduction found the shoulder to be relocatable and stable with the appropriate 3. Trial component was removed and the real implant was seated and secured the shoulder was reduced. The shoulder had excellent motion and excellent stability and no evidence of dislocation. The deep tissue was irrigated with pulse irrigation. The PA close the shoulder. The deltopectoral interval was closed with a running #1 PDS suture, subcutaneous tissue was irrigated and closed with 0 PDS suture, the skin was closed with Dermabond. The patient was placed in a sterile dressing, abduction brace and extubated. The patient was then transferred to the recovery room in stable condition. Anesthesia: GETA Surgeon: Dean Gonzales Was there an assistant designer present: Yes Paver: Umair John Estimated blood loss (cc): 100 Condition: stable Disposition: PACU
--- NOTE | 2019-04-30 17:33 | Anesthesia Procedures ---
Date of Encounter: 04/30/19 Time of Encounter: 16:25 Procedures: Anesthesia - Nerve Block Procedure Date: 04/30/19 Time: 16:25 Allergies/Adv Reactions: fosamax, lipitor, morphine, PCN, sulfa, zocor Pre-op Diagnosis: R humerus fracture, dislocation Surgical Procedure: R TSR, Reverse Checklist: Correct Patient Identifier, Correct procedure, History checked Correct side: Right Blood Thinner: No Monitor Applied: EKG, BP, Pulse Oximetry Supplemental Oxygen via Nasal Cannula (L/min): 3 Sedation: Fentanyl (mcg): 50 Indication: Post Op Analgesia (requested by Dr. Gonzales) Block Type: Supraclavicular Catheter placed: No Sterile Technique: Yes Ultrasound used: Yes Anatomy identified: Yes Visual spread of Local: Yes Neuro Stimulation: No Blood on Needle Aspiration: No Smooth Injection of Local: Yes Pain with Injection of Local: No Prep: Chlorhexadine Needle: 22 x 50 mm Stimuplex Local: Ropivacaine (30 mL of 0.5% ropivicaine + 4mg dexamethasone) Number of Attempts: 1 Complications: None/effective block Vitals: see holding vital signs notes
[2019-04-30] MEDS ORDERED: *HR* Succinylcholine 200 MG/10 ML VIAL IVP ONE (17:43)
[2019-04-30] MEDS ORDERED: Neostigmine Methylsulfate 3 MG/3 ML SYRINGE ONE (17:43)
[2019-04-30] MEDS ORDERED: Ondansetron 4 MG/2 ML VIAL ONE (17:43)
[2019-04-30] MEDS ORDERED: EPHEDrine 50 MG/ML VIAL ONE (17:43)
[2019-04-30] MEDS ORDERED: *HR* Propofol 200 MG/20 ML VIAL IVP ONE (17:43)
[2019-04-30] MEDS ORDERED: *HR* Rocuronium Bromide 50 MG/5 ML VIAL ONE (17:43)
[2019-04-30] MEDS ORDERED: Lidocaine -MPF 2% 2 ML VIAL ONE (17:43)
--- NOTE | 2019-04-30 18:13 | Electrocardiograph Report ---
[address] [place], [place] [address] Test Date: 2019-04-29 Pat Name: Estefania Oconnor Department: 114 Room: [facility] Gender: F Baker Doughnut: : 1930 Requested By: Yordan Forrest Order Number: [id number] Reading MD: Reg Flores Measurements Intervals [place] Rate: 57 P: 105 MI: 195 QRS: -4 QRSD: 90 T: 161 QT: 441 QTc: 435 Interpretive Statements SINUS BRADYCARDIA WITH SINUS ARRHYTHMIA ST DEVIATION AND MODERATE T-WAVE ABNORMALITY, CONSIDER LATERAL ISCHEMIA Electronically Signed On 04-30-2019 18:11:57 EDT by Reg Flores
[2019-04-30] MEDS ORDERED: *HR* LORazepam 0.5 MG TABLET PO PRN (18:20)
[2019-04-30] MEDS ORDERED: Ondansetron 4 MG/2 ML VIAL IVP PRN ×2 (18:20)
[2019-04-30] MEDS ORDERED: MOM Conc 10 ML UD.LIQ PO PRN ×2 (18:20)
[2019-04-30] MEDS ORDERED: Temazepam 15 MG CAPSULE PO PRN (18:20)
[2019-04-30] MEDS ORDERED: Sennosides 8.6 MG TABLET PO PRN (18:20)
[2019-04-30] MEDS ORDERED: Naloxone 0.4 MG/ML INJ IVP PRN (18:20)
[2019-04-30] MEDS ORDERED: Perflutren Lipid Microsphere 1.3 ML in 0.9 % Sodium Chloride 8.7 ML IVP ONE (18:20)
[2019-04-30] MEDS ORDERED: Nitroglycerin 0.4 MG TAB.SUBL SL PRN (18:20)
[2019-04-30 18:31] LABS: Hematocrit 31.1 % (35.3-44.9); Hemoglobin 9.4 g/dL (11.5-15.4)
--- NOTE | 2019-05-01 03:41 | Anesthesia Evaluation Post Op ---
Date of Encounter: 05/01/19 Time of Encounter: 18:30 - Vital Signs Vital Signs: Vital Signs Temp Pulse Resp BP Pulse Ox 04/30/19 21:30 98.1 F 68 16 101/61 96 04/30/19 20:29 98.9 F 63 16 118/48 93 04/30/19 19:49 98.2 F 61 16 107/49 91 04/30/19 18:33 98.1 F 65 18 102/45 93 04/30/19 18:24 64 20 110/43 93 04/30/19 18:14 98.5 F 64 16 109/47 93 04/30/19 18:04 71 20 107/41 93 04/30/19 17:54 76 10 99/48 94 04/30/19 17:44 98.1 F 84 18 118/55 94 04/30/19 16:14 51 14 117/44 95 04/30/19 15:29 55 15 117/44 93 04/30/19 11:39 98.5 F 58 16 113/44 96 04/30/19 06:34 98.5 F 60 20 130/54 96 Intake and Output 04/30/19 04/30/19 05/01/19 15:59 23:59 07:59 Intake Total 300 / 700 300 / 700 Output Total 100 / 100 Balance 300 / 600 200 / 600 Intake: IV Fluids 300 / 700 300 / 700 Cipro Premix 400 MG/200 ML 400 200 / 400 200 / 400 mg In 200 ml @ 200 mls/hr IVPB Q12HR [facility] Rx#:[id number] Cleocin Premix 900 MG/50 ML 900 0 / 0 mg In 50 ml @ 100 mls/hr IVPB PREOP ONE Rx#:[id number] Flagyl Premix 500 MG/100 ML 500 100 / 300 100 / 300 mg In 100 ml @ 100 mls/hr IVPB Q8H [facility] Rx#:[id number] Output: Estimated Blood Loss 100 / 100 Other: # Voids 1 - Lungs Lungs: Clear Ascult./Percussion - Airway Airway: Non-obstructed - Cardiovascular Regular Rate, Baseline Rhythm - Mental Status Mental Status: Alert & Oriented, Answers Appropriately - Pain Pain Scale: 0 Pain Scale used: Numeric (1 - 10) - Nausea Vomiting Nausea Vomiting: Not Present - Hydration Hydration: Tolerates oral liquids, Able to void - Discharge PostOp Status: Discharge Patient to home Anes Supervising Prov Stmt: Pt seen/evaluated, VSS and has met criteria for discharge to floor.Gustavo Aguirre MD
[2019-05-01 05:10] LABS: Basophils % 0.1 %; Eosinophils % 0.2 %; Hematocrit 28.2 % (35.3-44.9); Hemoglobin 8.4 g/dL (11.5-15.4); Immature Granulocytes % 0.2 % (0-4); Lymphocytes # 1.1 K/mcL (0.6-4.6); Mean Corpuscular HGB Conc 29.8 g/dL (31.6-35.5); Mean Corpuscular Hemoglobin 26.9 pg (28.0-33.3); Mean Corpuscular Volume 90.4 fL (83.0-100.0); Mean Platelet Volume 10.4 fL (9.4-12.4); Neutrophils # 6.5 K/mcL (1.6-8.9); Platelet Count 190 K/mcL (140-400); Red Blood Count 3.12 M/mcL (3.82-4.97); Red Cell Distribution Width 26.6 % (11.5-14.5); Segmented Neutrophils % 75.5 %; White Blood Count 8.6 K/mcL (4.3-11.1)
[2019-05-01] MEDS: MetroNIDAZOLE 500 MG/100 ML 500 MG/100 ML BAG IVPB SCH ×3 (05:10→19:54)
[2019-05-01 05:42] LABS: Anisocytosis 2+ (Not Present); Hypochromasia Present (Not Present); Microcytosis Present (Not Present); Ovalocytes 1+ (Not Present)
[2019-05-01 05:43] LABS: Platelet Estimate Normal (Normal); Poikilocytosis 1+ (Not Present)
[2019-05-01 07:37] LABS: BUN/Creatinine Ratio 14 (6-26); Blood Urea Nitrogen 11 mg/dL (8-23); Calcium 7.9 mg/dL (8.6-10.3); Carbon Dioxide 24 mEq/L (23-29); Chloride 106 mEq/L (98-107); Glucose 113 mg/dL (70-105); Magnesium 1.7 mg/dL (1.6-2.6); Osmolality,Calculated 280 (280-300); Potassium 4.4 mEq/L (3.5-5.1); Sodium 135 mEq/L (136-145); eGFR For African Americans > 60 (> 60); eGFR For Non-African Americans > 60 (> 60)
--- NOTE | 2019-05-01 08:13 | Orthopedics Progress Note ---
Date of Encounter: 05/01/19 Time of Encounter: 08:13 - Assessment and Plan (1) Acute blood loss anemia Current Visit: Yes Status: Acute Subjective Interval history: Patient was seen this morning doing well without complaints. Afebrile vital signs stable. Operative extremity: Neurovascularly intact Dressing clean dry and intact Calves nontender Assessment and plan: Continue with postoperative care Hemoglobin 8.4. Objective Vital signs: Vital Signs Temp Pulse Resp BP Pulse Ox 05/01/19 06:39 97.9 F 87 16 95/56 95 05/01/19 04:19 97.7 F 86 19 122/84 94 04/30/19 21:32 96 04/30/19 21:30 98.1 F 68 16 101/61 96 04/30/19 20:29 98.9 F 63 16 118/48 93 04/30/19 19:49 98.2 F 61 16 107/49 91 04/30/19 18:33 98.1 F 65 18 102/45 93 04/30/19 18:24 64 20 110/43 93 04/30/19 18:14 98.5 F 64 16 109/47 93 04/30/19 18:04 71 20 107/41 93 04/30/19 17:54 76 10 99/48 94 04/30/19 17:44 98.1 F 84 18 118/55 94 04/30/19 16:14 51 14 117/44 95 04/30/19 15:29 55 15 117/44 93 04/30/19 11:39 98.5 F 58 16 113/44 96 Intake and Output 04/30/19 05/01/19 05/01/19 23:59 07:59 15:59 Intake Total 300 / 700 Output Total 100 / 100 Balance 200 / 600 Intake: IV Fluids 300 / 700 Cipro Premix 400 MG/200 ML 400 200 / 200 mg In 200 ml @ 200 mls/hr IVPB Q12HR [facility] Rx#:[id number] Cleocin Premix 900 MG/50 ML 900 0 / 0 mg In 50 ml @ 100 mls/hr IVPB PREOP ONE Rx#:[id number] Flagyl Premix 500 MG/100 ML 500 100 / 100 mg In 100 ml @ 100 mls/hr IVPB Q8H [facility] Rx#:[id number] Output: Estimated Blood Loss 100 / 100 Other: # Voids 1 - Labs CBC & BMP: 05/01/19 03:57 05/01/19 07:12 Labs: Abnormal lab results RBC 3.12 M/mcL (3.82-4.97) L 05/01/19 03:57 Hgb 8.4 g/dL (11.5-15.4) L 05/01/19 03:57 Hct 28.2 % (35.3-44.9) L 05/01/19 03:57 MCH 26.9 pg (28.0-33.3) L 05/01/19 03:57 MCHC 29.8 g/dL (31.6-35.5) L 05/01/19 03:57 RDW 26.6 % (11.5-14.5) H 05/01/19 03:57 MPV 9.3 fL (9.4-12.4) L 04/30/19 04:38 Hypochromasia Present (Not Present) A 05/01/19 03:57 Poikilocytosis 1+ (Not Present) A 05/01/19 03:57 Anisocytosis 2+ (Not Present) A 05/01/19 03:57 Microcytosis Present (Not Present) A 05/01/19 03:57 Ovalocytes 1+ (Not Present) A 05/01/19 03:57 Sodium 135 mEq/L (136-145) L 05/01/19 07:12 Glucose 113 mg/dL (70-105) H 05/01/19 07:12 Calcium 7.9 mg/dL (8.6-10.3) L 05/01/19 07:12 Troponin I 0.04 ng/mL (< 0.04) H* 04/30/19 04:38 Consult Discharge Plan - Plan Referrals: NONE,PCP [Primary Care Provider] - Prescriptions: Docusate [Colace] 100 mg PO BID 5 Days #10 capsule Ibuprofen [Motrin] 600 mg PO Q6HR PRN 7 Days #28 tab PRN Reason: Pain Acetaminophen [Pain Relief] 500 mg PO Q6H 7 Days #28 tablet
--- NOTE | 2019-05-01 10:41 | Internal Med Progress Note ---
Hospitalist Progress Note - Encounter Date of Encounter: 05/01/19 Time of Encounter: 10:38 - Subjective Interval History: Ms Oconnor is status post R TSR, Reverse, stable postoperative 1. All the complaints this morning was her memory issues- deficits. She does endorse a history of prior colonoscopy many years ago, she stated that she has had's sever al blood transfusion. Most recent one a month ago and she is on iron supplement. She currently denies any melena or hematochezia. However, been noted to have continued to drop H&H stool guaiac is pending. She set up pain is resolved GEN: Denies fever, chills or malaise HEENT: Denies headache blurriness, or dysphagia RESP: Denies SOB or cough CV: Denies chest pain or palpitations GI: Denies Nausea, vomiting, diarrhea or constipation Reviewed current in hospital medications with modifications see orders Reviewed Routine labs - Exam Vitals: Temp Pulse Resp BP Pulse Ox 97.9 F 87 16 95/56 95 05/01/19 06:39 05/01/19 06:39 05/01/19 06:39 05/01/19 06:39 05/01/19 06:39 Exam: GEN: NAD, A&O x 3, Pleasant and conversant SKIN: [place] warm acyanotic not jaundice, thin fragile few ecchymosis noted in left upper extremity appears improvement HEART: RRR with occasional ectopic beat, no murmurs, old healed sternotomy scar noted LUNGS: Coarse but also diminished no wheeze or scattered crackles, overall non labored ABDOMEN; Soft, non tender or distended, BS x 4 normactive EXT: No LE edema, Pedal pulses 1+, radial pulses 2+, right upper extremity in a sling PSYCH: Mood and affect is appropriate Telemetry: Normal sinus rhythm at 73 - Assessment and Plan (1) Fracture of humerus, proximal, right, closed Current Visit: Yes Status: Acute Assessment and Plan: Status post R TSR, Reverse. Stable postoperative day 1, patient was from an ECF would likely discharge back to ECF once cleared by ortho. Of note:Pt transferred from [facility] due to acute fracture of R humerus with displacement. Admit to med surg. Ortho plan for surgical intervention however cardiac clearance is deemed necessary given high complaints of chest pain yesterday and mildly elevated troponin. Her metabolic equivalent is less than 4. cardiology consultation is pending (2) Troponin I above reference range Current Visit: Yes Status: Acute Assessment and Plan: Patient last night was completed and no chest pain, Reviewed the EKG from yesterday dated 04/29/2019 21:32- sinus bradycardia rate at 57, with ST depression and T-wave inversion noted in limb lead 1 aVL V4 V5 and V6. Patient this morning denies any chest pain, given her history of CAD status post CABG many years ago her troponin was trended 0.05, 0.04 , trop trended down 0.03, she was seen by cardiology team. She denies any further chest pain (3) CAD (coronary artery disease) Current Visit: Yes Status: Acute Assessment and Plan: history of CABG, she is only on the metoprolol tartrate she will benefit from statin therapy per cardiology's note patient has allergies. asa ,RAFFI inhibitor as well as optimize her medical regimen (4) Atrial fibrillation Current Visit: Yes Status: Chronic Assessment and Plan: EKG last month does reveal normal sinus rhythm although bradycardic upon review of her home medications not currently on any anticoagulation therapy although she is on metoprolol 25 twice a day continue to monitor on telemetry, normal sinus rhythm on telemetry at 74 (5) UTI (urinary tract infection) Current Visit: Yes Status: Acute Assessment and Plan: Pt recently diagnoses with Klebsiella UTI. At [facility] and I believe was started on antibiotic treatment she is afebrile denies dysuria and has no leukocytosis she is currently on Flagyl and ciprofloxacin for diverticulitis (6) Acute diverticulitis Current Visit: Yes Status: Acute Assessment and Plan: Pt has been on Cipro/Flagy, we will review records and likely treat for 10 days total (7) Hypertension Current Visit: Yes Status: Chronic Assessment and Plan: Normotensive only on metoprolol (8) GERD (gastroesophageal reflux disease) Current Visit: Yes Status: Chronic Assessment and Plan: Continue PPI (9) Seizure disorder Current Visit: Yes Status: Chronic Assessment and Plan: Pt had acute seizure at [facility] - dilantin level low and was on quinolone (? low seizure threshold), Loaded with IV Dilantin and dose increased. Prior to sei zures at [facility] patient denies any frequency seizure activity, a phenytoin level is now therapeutic we will continue therapy and place patient on seizure protocol DVT Prophylaxis: Heparin per protocol - Time Spent with Patient Total time spent is greater than 50% in coordination of care (as documented) at patient's floor/unit and/or counseling patient: Internal Medicine: Result - Labs CBC & Chem 7: 05/01/19 03:57 05/01/19 07:12 Labs: Short CBC 04/30/19 05/01/19 Range/Units 18:16 03:57 WBC 8.6 (4.3-11.1) K/mcL Hgb 9.4 L 8.4 L (11.5-15.4) g/dL Hct 31.1 L 28.2 L (35.3-44.9) % Plt Count 190 (140-400) K/mcL Neutrophils # 6.5 (1.6-8.9) K/mcL BMP 05/01/19 07:12 Sodium 135 L Potassium 4.4 Chloride 106 Carbon Dioxide 24 BUN 11 Creatinine 0.76 Glucose 113 H Calcium 7.9 L Cardiac Enzymes 04/30/19 Range/Units 10:20 Troponin I 0.03 (< 0.04) ng/mL - Impressions Impressions Shoulder X-Ray 04/30/19 01:00 IMPRESSION: Postsurgical change of right shoulder arthroplasty. D/ / All Saldana MD / All Sadlana MD Interpreting Provider: All Saldana MD Consult Discharge Plan - Plan Referrals: NONE,PCP [Primary Care Provider] - (1) Fracture of humerus, proximal, right, closed Qualifiers: Encounter type: initial encounter Fracture morphology: other fracture Fracture alignment: displaced Qualified Code(s): S42.291A - Other displaced fracture of upper end of right humerus, initial encounter for closed fracture (3) CAD (coronary artery disease) Qualifiers: Coronary Disease-Associated Artery/Lesion type: bypass graft [place] vs. transplanted heart: [place] heart Associated angina: with other forms of angina Qualified Code(s): I25.708 - Atherosclerosis of coronary artery bypass graft(s), unspecified, with other forms of angina pectoris (4) Atrial fibrillation Qualifiers: Atrial fibrillation type: chronic Qualified Code(s): I48.2 - Chronic atrial fibrillation (5) UTI (urinary tract infection) Qualifiers: Urinary tract infection type: acute cystitis Hematuria presence: without hematuria Qualified Code(s): N30.00 - Acute cystitis without hematuria (7) Hypertension Qualifiers: Hypertension type: essential hypertension Qualified Code(s): I10 - Essential (primary) hypertension (8) GERD (gastroesophageal reflux disease) Qualifiers: Esophagitis presence: esophagitis presence not specified Qualified Code(s): K21.9 - Gastro-esophageal reflux disease without esophagitis
--- NOTE | 2019-05-01 11:54 | Event Note ---
Date of Encounter: 05/01/19 Time of Encounter: 12:35 POD#1 s/p Total Shoulder Replacment Reverse, right [Right shoulder fracture dislocation] 04/30/19 Patient seen at bedside. A&O to person. Patient noted to be much more conversive and alert today compared to previous examination by this author. Dressing and incision c/d/i Slingshot brace in place. Hair Boiler strength weakened to right hand. No calf tenderness, erythema, or warmth. Neurovascularly intact b/l LE. Labwork, vitals, and medications reviewed. Pain control: Adequate Participating in therapy. All questions and concerns addressed. Patient educated on post-operative restrictions and care. Leave brace with abduction pillow in place. NO SHOULDER MOTION. Nonweightbearing to operative extremity. Addressed: see above. Patient course and disposition discussed with Dr. Gonzales D/C plan: per report, patient is bed hold at [facility].
[2019-05-01] MEDS ORDERED: *HR* Metoprolol 5 MG/5 ML VIAL IVP ONE (17:42)
[2019-05-01] MEDS ORDERED: *HR* Metoprolol 5 MG/5 ML VIAL IVP PRN (17:44)
[2019-05-01] MEDS ORDERED: Aminoglycoside Consult 1 EACH MC ONE (18:15)
[2019-05-01 18:17] LABS: Bilirubin,Urine Small (Negative); Blood,Urine Negative (Negative); Clarity,Urine Clear (Clear); Color,Urine Dark Yellow (Yellow); Glucose,Urine (UA) Normal (Normal); Ketones,Urine Negative (Negative); Leukocyte Esterase,Urine Small (Negative); Nitrite,Urine Positive (Negative); Protein,Urine 30 mg/dL (Neg-Trace); Specific Gravity,Urine 1.024 (1.010-1.025); Urobilinogen,Urine Normal (Normal)
[2019-05-01 18:19] LABS: Bacteria,Urine None Seen per hpf (None-Few); Hyaline Casts,Urine None Seen per lpf (None-Few); RBC,Urine 0-3 per hpf (0-3); Squamous Epithelial Cell,Urine Many per lpf (None-Few)
[2019-05-01 18:19] LABS: Basophils % 0.2 %; Eosinophils % 0.2 %; Hematocrit 32.1 % (35.3-44.9); Hemoglobin 9.8 g/dL (11.5-15.4); Immature Granulocytes % 0.5 % (0-4); Lymphocytes # 1.1 K/mcL (0.6-4.6); Lymphocytes % 8.3 %; Mean Corpuscular HGB Conc 30.5 g/dL (31.6-35.5); Mean Corpuscular Hemoglobin 26.8 pg (28.0-33.3); Mean Corpuscular Volume 87.7 fL (83.0-100.0); Mean Platelet Volume 10.2 fL (9.4-12.4); Monocytes # 1.6 K/mcL (0.0-1.3); Monocytes % 12.3 %; Platelet Count 221 K/mcL (140-400); Red Blood Count 3.66 M/mcL (3.82-4.97); Segmented Neutrophils % 78.5 %; White Blood Count 12.7 K/mcL (4.3-11.1)
[2019-05-01] MEDS ORDERED: *HR* Metoprolol 5 MG/5 ML VIAL IVP STA (18:37)
[2019-05-01 18:38] LABS: BUN/Creatinine Ratio 15 (6-26); Blood Urea Nitrogen 11 mg/dL (8-23); Calcium 8.1 mg/dL (8.6-10.3); Carbon Dioxide 25 mEq/L (23-29); Chloride 103 mEq/L (98-107); Glucose 134 mg/dL (70-105); Osmolality,Calculated 279 (280-300); Potassium 3.9 mEq/L (3.5-5.1); Sodium 134 mEq/L (136-145); eGFR For African Americans > 60 (> 60); eGFR For Non-African Americans > 60 (> 60)
[2019-05-01] MEDS: Lactobacillus 1 EACH CAP.SPRINK PO SCH (21:03)
[2019-05-01] MEDS: Cefepime HCl 1,000 MG in Water for inj. (sterile) 10 ML IVP SCH (21:13)
[2019-05-02 02:52] LABS: BUN/Creatinine Ratio 16 (6-26); Blood Urea Nitrogen 10 mg/dL (8-23); Carbon Dioxide 24 mEq/L (23-29); Chloride 104 mEq/L (98-107); Glucose 108 mg/dL (70-105); Magnesium 1.7 mg/dL (1.6-2.6); Osmolality,Calculated 278 (280-300); Potassium 3.8 mEq/L (3.5-5.1); Sodium 134 mEq/L (136-145); eGFR For African Americans > 60 (> 60); eGFR For Non-African Americans > 60 (> 60)
[2019-05-02 02:56] LABS: % Iron Saturation 15 % (15-50); Iron 34 mcg/dL (50-170); Transferrin 160 mg/dL (203-362)
[2019-05-02 03:10] LABS: Ferritin 87 ng/mL (10-120)
[2019-05-02 03:32] LABS: Folate 13.9 ng/mL (3.0-16.0)
[2019-05-02] MEDS ORDERED: *HR* LORazepam 2 MG/ML VIAL IVP PRN (06:37)
[2019-05-02] MEDS: Cefepime HCl 1,000 MG in Water for inj. (sterile) 10 ML IVP SCH (06:38)
--- NOTE | 2019-05-02 06:45 | Orthopedics Progress Note ---
Date of Encounter: 05/02/19 Time of Encounter: 06:44 - Assessment and Plan (1) Acute blood loss anemia Current Visit: Yes Status: Acute Subjective Interval history: Patient was seen this morning more confusion, combative, noncompliant with bracing, repeat x-rays right shoulder from yesterday show no abnormality, left repeat x-rays today based on continued noncompliance. Patient is unsafe we will try to improve combativeness with Ativan 0.5 mg every 6. IV. Objective Vital signs: Vital Signs Temp Pulse Resp BP Pulse Ox 05/02/19 04:19 97.7 F 77 19 138/86 93 05/01/19 20:00 94 05/01/19 18:30 98.9 F 124 15 94/58 94 05/01/19 15:29 98.9 F 90 16 135/58 93 05/01/19 10:42 99.9 F H 58 16 108/59 93 Intake and Output 05/01/19 05/01/19 05/02/19 15:59 23:59 07:59 Intake Total 200 / 860 560 / 860 Balance 200 / 860 560 / 860 10 Intake: IV Fluids 200 / 860 560 / 860 Maxipime 1,000 MG In Water for inj. (sterile) 10 ML @ 300 mls/ hr IVP Q12HR [facility] Rx#:[id number] Cipro Premix 400 MG/200 ML 400 200 / 400 200 / 400 mg In 200 ml @ 200 mls/hr IVPB Q12HR [facility] Rx#:[id number] Flagyl Premix 500 MG/100 ML 500 100 / 200 mg In 100 ml @ 100 mls/hr IVPB Q8H [facility] Rx#:[id number] Vancocin 1,000 MG In 0.9 % 250 / 250 Sodium Chloride 250 ML @ 167 mls/hr IVPB Q24H [facility] Rx#: [id number] Other: # Urine Diapers 1 Weight 68.8 kg Blood Glucose* 131 Patient Weight 05/02/19 23:59 Weight 68.8 kg - Labs CBC & BMP: 05/01/19 17:58 05/02/19 02:19 Labs: Abnormal lab results WBC 12.7 K/mcL (4.3-11.1) H 05/01/19 17:58 RBC 3.66 M/mcL (3.82-4.97) L 05/01/19 17:58 Hgb 9.8 g/dL (11.5-15.4) L 05/01/19 17:58 Hct 32.1 % (35.3-44.9) L 05/01/19 17:58 MCH 26.8 pg (28.0-33.3) L 05/01/19 17:58 MCHC 30.5 g/dL (31.6-35.5) L 05/01/19 17:58 RDW 26.6 % (11.5-14.5) H 05/01/19 03:57 MPV 9.3 fL (9.4-12.4) L 04/30/19 04:38 Neutrophils # 10.0 K/mcL (1.6-8.9) H 05/01/19 17:58 Monocytes # 1.6 K/mcL (0.0-1.3) H 05/01/19 17:58 Hypochromasia Present (Not Present) A 05/01/19 03:57 Poikilocytosis 1+ (Not Present) A 05/01/19 03:57 Anisocytosis 2+ (Not Present) A 05/01/19 03:57 Microcytosis Present (Not Present) A 05/01/19 03:57 Ovalocytes 1+ (Not Present) A 05/01/19 03:57 Sodium 134 mEq/L (136-145) L 05/02/19 02:19 Glucose 108 mg/dL (70-105) H 05/02/19 02:19 Calculated Osmolality 278 (280-300) L 05/02/19 02:19 Calcium 8.0 mg/dL (8.6-10.3) L 05/02/19 02:19 Iron 34 mcg/dL (50-170) L 05/02/19 02:19 Transferrin 160 mg/dL (203-362) L 05/02/19 02:19 Ammonia 76 mcmol/L (16-53) H 05/01/19 19:48 Troponin I 0.04 ng/mL (< 0.04) H* 04/30/19 04:38 Vitamin B12 244 pg/mL (250-1100) L 05/02/19 02:19 Urine Protein 30 mg/dL (Neg-Trace) H 05/01/19 Unknown Urine Nitrite Positive (Negative) A 05/01/19 Unknown Urine Bilirubin Small (Negative) H 05/01/19 Unknown Ur Leukocyte Esterase Small (Negative) H 05/01/19 Unknown Urine Microscopic WBC 5-15 per hpf (0-3) H 05/01/19 Unknown Ur Squamous Epith Cells Many per lpf (None-Few) H 05/01/19 Unknown Ur Culture Indicated? YES (NO) A 05/01/19 Unknown Consult Discharge Plan - Plan Referrals: NONE,PCP [Primary Care Provider] -
[2019-05-02 08:27] LABS: Basophils % 0.2 %; Eosinophils # 0.1 K/mcL (0.0-0.6); Hematocrit 32.3 % (35.3-44.9); Immature Granulocytes % 0.6 % (0-4); Lymphocytes # 1.2 K/mcL (0.6-4.6); Mean Corpuscular Volume 87.3 fL (83.0-100.0); Mean Platelet Volume 10.7 fL (9.4-12.4); Monocytes # 1.7 K/mcL (0.0-1.3); Monocytes % 14.3 %; Platelet Count 213 K/mcL (140-400); Segmented Neutrophils % 73.9 %; White Blood Count 12.1 K/mcL (4.3-11.1)
[2019-05-02 08:28] LABS: Neutrophils # 8.9 K/mcL (1.6-8.9); Platelet Estimate Normal (Normal)
[2019-05-02 08:29] LABS: Anisocytosis 1+ (Not Present); Hypochromasia Present (Not Present); Poikilocytosis 1+ (Not Present)
[2019-05-02] MEDS: Cyanocobalamin (B-12) 1,000 MCG TABLET PO SCH (08:52)
[2019-05-02] MEDS: Lactulose Oral Soln 20 GM/30 ML UDC PO SCH ×3 (08:52→22:34)
[2019-05-02] MEDS: Lactobacillus 1 EACH CAP.SPRINK PO SCH ×2 (08:52→22:33)
--- NOTE | 2019-05-02 10:06 | Internal Med Progress Note ---
Hospitalist Progress Note - Encounter Date of Encounter: 05/02/19 Time of Encounter: 10:04 - Subjective Interval History: Ms Oconnor was noted to become body of this morning however during my encounter with her she appears to be back to baseline with underlying dementia and was apologetic for her behavioral. Of note ammonia yesterday was elevated at 76. Per nursing staff Patient lost IV access. GEN: Denies fever, chills or malaise HEENT: Denies headache blurriness, or dysphagia RESP: Denies SOB or cough CV: Denies chest pain or palpitations GI: Denies Nausea, vomiting, diarrhea or constipation Reviewed current in hospital medications with modifications see orders Reviewed Routine labs - Exam Vitals: Temp Pulse Resp BP Pulse Ox 97.7 F 77 19 138/86 93 05/02/19 04:19 05/02/19 04:19 05/02/19 04:19 05/02/19 04:19 05/02/19 04:19 Exam: GEN: NAD, A&O x 2-self and president but not to place, Pleasant and conversant and became tearful towards the end of the conversation SKIN: [place] warm acyanotic not jaundice, thin fragile few ecchymosis noted in left upper extremity appears improvement HEART: Irregularly irregular rate and rhythm no murmurs, old healed sternotomy scar noted LUNGS: Coarse but also diminished no wheeze or scattered crackles, overall non labored ABDOMEN; Soft, non tender or distended, BS x 4 normactive EXT: No LE edema, Pedal pulses 1+, radial pulses 2+, right upper extremity in a sling PSYCH: Mood and affect is appropriate Telemetry: A. fib rate controlled at 63-67 - Assessment and Plan (1) Sepsis Current Visit: Yes Status: Acute Assessment and Plan: Patient yesterday evening met criteria for sepsis- heart rate of 120s to 140s, leukocytosis of 12.7 and altered mental status. Urine culture does reveal positive nitrites with small leukocyte estarase but with many epithelial cells of note this was a clean-catch. Blood and urine cultures pending, patient was already on IV Flagyl and Cipro from high initial presentation from [facility] for diverticulitis. These antibodies were discontinued and she was empirically covered with cefepime and vancomycin. WBC this morning trended down to 12.1 although patient lost IV access. Given the new finding of hyperammonia and likely hepatic encephalopathy the diagnosis of infectious encephalopathy from sepsis is low on the differential. She remains afebrile IV access is an issue, CVC is an option however last resort since she no longer appears septic has no real indication for subjective the patient for such procedure. If any we could manage her UTI with oral antibiotics and clinically correlate all discontinue all antibiotics if repeat WBC normalized since it is quite likely that tachycardia was due to atrial flutter which RVR of note she has a history of atrial fibrillation and she is now rate controlled and her leukocytosis could be explained as reactive and her AMS could get but it hyperammonia (2) Metabolic encephalopathy Current Visit: Yes Status: Acute Assessment and Plan: Suspect either a lab error with her hyperammonia or she does have hepatic encephalopathy. Elicited history from the patient is limited by her dementia. This morning she was combative earlier, but during my encounter with the patient she appears to be back to baseline we will continue monitoring clinically correlate (3) Hyperammonemia Current Visit: Yes Status: Acute Assessment and Plan: Ammonia level yesterday was 76, repeat ammonia is pending she was started on lactulose this morning. Etiology remains unclear. elicited a history from the patient is limited by her underlying dementia. We will trend ammonia continue lactulose, trend LFTs and ammonia (4) Fracture of humerus, proximal, right, closed Current Visit: Yes Status: Acute Assessment and Plan: Status post R TSR, Reverse. Stable postoperative day 1, patient was from an ECF would likely discharge back to ECF once cleared by ortho. Of note:Pt transferred from [facility] due to acute fracture of R humerus with displacement. Admit to med surg. Ortho plan for surgical intervention however cardiac clearance is deemed necessary given high complaints of chest pain yesterday and mildly elevated troponin. Her metabolic equivalent is less than 4. cardiology consultation is pending (5) Troponin I above reference range Current Visit: Yes Status: Acute Assessment and Plan: Patient last night was completed and no chest pain, Reviewed the EKG from yesterday dated 04/29/2019 21:32- sinus bradycardia rate at 57, with ST depression and T-wave inversion noted in limb lead 1 aVL V4 V5 and V6. Patient this morning denies any chest pain, given her history of CAD status post CABG many years ago her troponin was trended 0.05, 0.04 , trop trended down 0.03, she was seen by cardiology team. She denies any further chest pain (6) CAD (coronary artery disease) Current Visit: Yes Status: Acute Assessment and Plan: history of CABG, she is only on the metoprolol tartrate she will benefit from statin therapy per cardiology's note patient has allergies. asa ,RAFFI inhibitor as well as optimize her medical regimen (7) Atrial fibrillation Current Visit: Yes Status: Chronic Assessment and Plan: Yesterday evening she had atrial flutter with rapid ventricular response which was treated with IV metoprolol in addition to her oral metoprolol. Telemetry this morning revealed rate controlled atrial fibrillation EKG last month does reveal normal sinus rhythm although bradycardic upon review of her home medications not currently on any anticoagulation therapy although she is on metoprolol 25 twice a day continue to monitor on telemetry, normal sinus rhythm on telemetry at 74 (8) UTI (urinary tract infection) Current Visit: Yes Status: Acute Assessment and Plan: Pt recently diagnoses with Klebsiella UTI. At [facility] and I believe was started on antibiotic treatment she is afebrile denies dysuria and has no leukocytosis she is currently on Flagyl and ciprofloxacin for diverticulitis, work up for sepsis included UA which was positive for nitrite but small leukocytes esterase clinically correlate she has been on Cipro and Flagyl which were discontinued and switched to cefepime and vancomycin AND has IV access issues, see above plan for sepsis. (9) Acute diverticulitis Current Visit: Yes Status: Acute Assessment and Plan: Pt has been on Cipro/Flagy, see above plan for sepsis. Abdomen exam was benign, she did receive 3 days worth of treatment here. We will review records from [facility] (10) Hypertension Current Visit: Yes Status: Chronic Assessment and Plan: Normotensive only on metoprolol (11) GERD (gastroesophageal reflux disease) Current Visit: Yes Status: Chronic Assessment and Plan: Continue PPI (12) Seizure disorder Current Visit: Yes Status: Chronic Assessment and Plan: Pt had acute seizure at [facility] - dilantin level low and was on quinolone (? low seizure threshold), Loaded with IV Dilantin and dose increased. Prior to seizures at [facility] patient denies any frequency seizure activity, a phenytoin level is now therapeutic we will continue therapy and place patient on seizure protocol. Watch out for any seizure-like activity DVT Prophylaxis: SCDs given the recent surgery - Time Spent with Patient Total time spent is greater than 50% in coordination of care (as documented) at patient's floor/unit and/or counseling patient: Internal Medicine: Result - Labs CBC & Chem 7: 05/02/19 07:41 05/02/19 02:19 Labs: Short CBC 05/01/19 05/02/19 Range/Units 17:58 07:41 WBC 12.7 H 12.1 H (4.3-11.1) K/mcL Hgb 9.8 L 10.0 L (11.5-15.4) g/dL Hct 32.1 L 32.3 L (35.3-44.9) % Plt Count 221 213 (140-400) K/mcL Neutrophils # 10.0 H 8.9 (1.6-8.9) K/mcL BMP 05/01/19 05/02/19 17:58 02:19 Sodium 134 L 134 L Potassium 3.9 3.8 Chloride 103 104 Carbon Dioxide 25 24 BUN 11 10 Creatinine 0.71 0.61 Glucose 134 H 108 H Calcium 8.1 L 8.0 L Urine 05/01/19 Range/Units Unknown Urine Color Dark Yellow (Yellow) Urine Clarity Clear (Clear) Urine pH 5.0 (5.0-8.0) pH Units Ur Specific [place] 1.024 (1.010-1.025) Urine Protein 30 H (Neg-Trace) mg/dL Urine Glucose (UA) Normal (Normal) mg/dL - Impressions Impressions Shoulder X-Ray 05/01/19 12:48 IMPRESSION: Stable reverse right shoulder replacement. D/ / 05/01/2019 13:32:35 Malcom Gotti MD / olvin Interpreting Provider: Malcom Gotti MD Shoulder X-Ray 05/02/19 06:37 IMPRESSION: No acute findings D/ / Ariana Pleitez MD / Ariana Pleitez MD Interpreting Provider: Ariana Pleitez MD Consult Discharge Plan - Plan Referrals: NONE,PCP [Primary Care Provider] - (1) Sepsis Qualifiers: Sepsis type: sepsis due to unspecified organism Sepsis acute organ dysfunction status: with acute organ dysfunction Severe sepsis acute organ dysfunction type: encephalopathy Severe sepsis shock status: without septic shock Qualified Code(s): A41.9 - Sepsis, unspecified organism; R65.20 - Severe sepsis without septic shock; G93.40 - Encephalopathy, unspecified (4) Fracture of humerus, proximal, right, closed Qualifiers: Encounter type: initial encounter Fracture morphology: other fracture F racture alignment: displaced Qualified Code(s): S42.291A - Other displaced fracture of upper end of right humerus, initial encounter for closed fracture (6) CAD (coronary artery disease) Qualifiers: Coronary Disease-Associated Artery/Lesion type: bypass graft [place] vs. transplanted heart: [place] heart Associated angina: with other forms of angina Qualified Code(s): I25.708 - Atherosclerosis of coronary artery bypass graft(s), unspecified, with other forms of angina pectoris (7) Atrial fibrillation Qualifiers: Atrial fibrillation type: chronic Qualified Code(s): I48.2 - Chronic atrial fibrillation (8) UTI (urinary tract infection) Qualifiers: Urinary tract infection type: acute cystitis Hematuria presence: without hematuria Qualified Code(s): N30.00 - Acute cystitis without hematuria (10) Hypertension Qualifiers: Hypertension type: essential hypertension Qualified Code(s): I10 - Essential (primary) hypertension (11) GERD (gastroesophageal reflux disease) Qualifiers: Esophagitis presence: esophagitis presence not specified Qualified Code(s): K21.9 - Gastro-esophageal reflux disease without esophagitis
[2019-05-02 10:10] LABS: Basophils % 0.3 %; Eosinophils # 0.1 K/mcL (0.0-0.6); Eosinophils % 0.8 %; Hematocrit 31.8 % (35.3-44.9); Hemoglobin 9.6 g/dL (11.5-15.4); Immature Granulocytes % 0.6 % (0-4); Lymphocytes # 1.2 K/mcL (0.6-4.6); Mean Corpuscular HGB Conc 30.2 g/dL (31.6-35.5); Mean Corpuscular Volume 89.6 fL (83.0-100.0); Mean Platelet Volume 9.6 fL (9.4-12.4); Monocytes # 1.7 K/mcL (0.0-1.3); Monocytes % 13.5 %; Neutrophils # 9.3 K/mcL (1.6-8.9); Platelet Count 223 K/mcL (140-400); Red Blood Count 3.55 M/mcL (3.82-4.97); Segmented Neutrophils % 74.8 %; White Blood Count 12.4 K/mcL (4.3-11.1)
[2019-05-02 10:35] LABS: Albumin/Globulin Ratio 1.3 (1.1-2.2); Bilirubin,Direct 0.1 mg/dL (0.0-0.2); Bilirubin,Indirect 0.4 mg/dL (0.0-1.2); Bilirubin,Total 0.5 mg/dL (0.3-1.0); Globulin 2.4 g/dL (2.4-3.5); Total Protein 5.4 g/dL (6.4-8.9)
--- NOTE | 2019-05-02 16:25 | Electrocardiograph Report ---
[address] [place], [place] [address] Test Date: 2019-05-01 Pat Name: Estefania Oconnor Department: 114 Room: [facility] Gender: F [employer] Operator: JJMel : [id number] Requested By: Millicent Jesus Order Number: [id number] Reading MD: Dayanna Shafer Measurements Intervals Depue Rate: 135 P: KS: 0 QRS: -6 QRSD: 81 T: 159 QT: 251 QTc: 330 Interpretive Statements Atrial fibrillation with rapid ventricular response ST DEVIATION AND MODERATE T-WAVE ABNORMALITY, CONSIDER LATERAL ISCHEMIA Electronically Signed On 05-02-2019 16:23:36 EDT by Dayanna Shafer
[2019-05-02] MEDS: Ringers Solution, Lactated 1,000 ML IVC SCH ×2 (20:57→20:58)
[2019-05-03 05:42] LABS: Basophils # 0.1 K/mcL (0.0-0.2); Basophils % 0.5 %; Eosinophils # 0.2 K/mcL (0.0-0.6); Eosinophils % 1.8 %; Hematocrit 28.8 % (35.3-44.9); Immature Granulocytes % 0.4 % (0-4); Lymphocytes # 1.9 K/mcL (0.6-4.6); Lymphocytes % 17.4 %; Mean Corpuscular HGB Conc 31.3 g/dL (31.6-35.5); Mean Corpuscular Volume 89.4 fL (83.0-100.0); Mean Platelet Volume 9.8 fL (9.4-12.4); Monocytes # 1.5 K/mcL (0.0-1.3); Monocytes % 13.9 %; Neutrophils # 7.3 K/mcL (1.6-8.9); Platelet Count 224 K/mcL (140-400); Red Blood Count 3.22 M/mcL (3.82-4.97); Red Cell Distribution Width 26.4 % (11.5-14.5); White Blood Count 11.1 K/mcL (4.3-11.1)
[2019-05-03] MEDS: Ringers Solution, Lactated 1,000 ML IVC SCH (05:59)
[2019-05-03 06:08] LABS: Alanine Aminotransferase 37 Units/L (7-52); Albumin 2.9 g/dL (3.5-5.7); Albumin/Globulin Ratio 1.4 (1.1-2.2); Alkaline Phosphatase 85 Units/L (34-104); Aspartate Amino Transferase 34 Units/L (13-39); BUN/Creatinine Ratio 20 (6-26); Bilirubin,Direct 0.1 mg/dL (0.0-0.2); Bilirubin,Indirect 0.3 mg/dL (0.0-1.2); Bilirubin,Total 0.4 mg/dL (0.3-1.0); Blood Urea Nitrogen 13 mg/dL (8-23); Calcium 7.8 mg/dL (8.6-10.3); Carbon Dioxide 26 mEq/L (23-29); Chloride 103 mEq/L (98-107); Globulin 2.1 g/dL (2.4-3.5); Glucose 95 mg/dL (70-105); Magnesium 1.9 mg/dL (1.6-2.6); Osmolality,Calculated 282 (280-300); Potassium 3.6 mEq/L (3.5-5.1); Sodium 136 mEq/L (136-145); eGFR For African Americans > 60 (> 60); eGFR For Non-African Americans > 60 (> 60)
[2019-05-03 06:23] LABS: Anisocytosis 3+ (Not Present); Hypochromasia Present (Not Present); Platelet Estimate Normal (Normal); Polychromasia 1+ (Not Present)
--- NOTE | 2019-05-03 07:44 | Orthopedics Progress Note ---
Date of Encounter: 05/03/19 Time of Encounter: 07:43 - Assessment and Plan (1) Acute blood loss anemia Current Visit: Yes Status: Acute Subjective Interval history: Patient was seen this morning resting comfortably, x-rays reviewed, show placement to be well reduced and position. Disposition plan will be based on medical issues. Orthopedically patient is stable Objective Vital signs: Vital Signs Temp Pulse Resp BP Pulse Ox 05/03/19 07:00 98.5 F 73 18 105/51 94 05/03/19 03:26 98.3 F 136 16 97/56 93 05/02/19 23:39 97.7 F 135 16 103/68 94 05/02/19 15:32 99.9 F H 78 18 121/67 94 05/02/19 10:53 98.6 F 68 18 109/55 99 Intake and Output 05/02/19 05/02/19 05/03/19 15:59 23:59 07:59 Intake Total 120 / 230 100 / 230 15 / 15 Balance 120 / 230 100 / 230 15 / 15 Intake: IV Fluids 15 15 Cardizem 50 MG In 0.9 % Sodium 15 / 15 Chloride 40 ML @ 2.5 MG/HR 2.5 mls/hr IVC CONT RAVEN Rx#: [id number] Oral 120 / 220 100 / 220 Other: Meal Lunch Dinner Percent of Meal Consumed 0% 5% Stool Size Copious Stool Consistency liquid Stool Color Brown Green # Urine Diapers 1 # Bowel Movement Diapers 1 - Labs CBC & BMP: 05/03/19 05:28 05/03/19 05:28 Labs: Abnormal lab results WBC 12.4 K/mcL (4.3-11.1) H 05/02/19 09:54 RBC 3.22 M/mcL (3.82-4.97) L 05/03/19 05:28 Hgb 9.0 g/dL (11.5-15.4) L 05/03/19 05:28 Hct 28.8 % (35.3-44.9) L 05/03/19 05:28 MCH 27.0 pg (28.0-33.3) L 05/02/19 09:54 MCHC 31.3 g/dL (31.6-35.5) L 05/03/19 05:28 RDW 26.4 % (11.5-14.5) H 05/03/19 05:28 MPV 9.3 fL (9.4-12.4) L 04/30/19 04:38 Neutrophils # 9.3 K/mcL (1.6-8.9) H 05/02/19 09:54 Monocytes # 1.5 K/mcL (0.0-1.3) H 05/03/19 05:28 Polychromasia 1+ (Not Present) A 05/03/19 05:28 Hypochromasia Present (Not Present) A 05/03/19 05:28 Poikilocytosis 1+ (Not Present) A 05/02/19 07:41 Anisocytosis 3+ (Not Present) A 05/03/19 05:28 Microcytosis Present (Not Present) A 05/01/19 03:57 Ovalocytes 1+ (Not Present) A 05/01/19 03:57 Sodium 134 mEq/L (136-145) L 05/02/19 02:19 Glucose 108 mg/dL (70-105) H 05/02/19 02:19 POC Glucose 131 mg/dL (70-99) H 05/01/19 18:17 Calculated Osmolality 278 (280-300) L 05/02/19 02:19 Calcium 7.8 mg/dL (8.6-10.3) L 05/03/19 05:28 Iron 34 mcg/dL (50-170) L 05/02/19 02:19 Transferrin 160 mg/dL (203-362) L 05/02/19 02:19 AST 58 Units/L (13-39) H 05/02/19 09:54 Ammonia 76 mcmol/L (16-53) H 05/01/19 19:48 Troponin I 0.04 ng/mL (< 0.04) H* 04/30/19 04:38 Serum Total Protein 5.0 g/dL (6.4-8.9) L 05/03/19 05:28 Albumin 2.9 g/dL (3.5-5.7) L 05/03/19 05:28 Globulin 2.1 g/dL (2.4-3.5) L 05/03/19 05:28 Vitamin B12 244 pg/mL (250-1100) L 05/02/19 02:19 Urine Protein 30 mg/dL (Neg-Trace) H 05/01/19 Unknown Urine Nitrite Positive (Negative) A 05/01/19 Unknown Urine Bilirubin Small (Negative) H 05/01/19 Unknown Ur Leukocyte Esterase Small (Negative) H 05/01/19 Unknown Urine Microscopic WBC 5-15 per hpf (0-3) H 05/01/19 Unknown Ur Squamous Epith Cells Many per lpf (None-Few) H 05/01/19 Unknown Ur Culture Indicated? YES (NO) A 05/01/19 Unknown Consult Discharge Plan - Plan Referrals: NONE,PCP [Primary Care Provider] -
[2019-05-03] MEDS: Lactulose Oral Soln 20 GM/30 ML UDC PO SCH ×2 (07:59→20:02)
[2019-05-03] MEDS: Lactobacillus 1 EACH CAP.SPRINK PO SCH ×2 (07:59→20:02)
[2019-05-03] MEDS: Cyanocobalamin (B-12) 1,000 MCG TABLET PO SCH (08:00)
--- NOTE | 2019-05-03 13:27 | Internal Med Progress Note ---
Hospitalist Progress Note - Encounter Date of Encounter: 05/03/19 Time of Encounter: 08:30 - Subjective Interval History: Ms Oconnor per nursing staff had a huge BM overnight. She appears to be back to baseline and no longer on close supervison. She was seen by ortho team and has been cleared for discharge from their stand point. Her only complain this morning was pain in her surgically repaired shoulder GEN: Denies fever, chills or malaise HEENT: Denies headache blurriness, or dysphagia RESP: Denies SOB or cough CV: Denies chest pain or palpitations GI: Denies Nausea, vomiting, diarrhea or constipation Reviewed current in hospital medications with modifications see orders Reviewed Routine labs - Exam Vitals: Temp Pulse Resp BP Pulse Ox 98.6 F 98 18 97/64 97 05/03/19 10:45 05/03/19 10:45 05/03/19 10:45 05/03/19 10:45 05/03/19 10:45 Exam: GEN: NAD, A&O x 3, Pleasant and conversant SKIN: [place] warm acyanotic not jaundice, thin fragile few ecchymosis noted in left upper extremity HEART: Irregularly irregular rate and rhythm no murmurs, old healed sternotomy scar noted LUNGS: diminished but appears CTA, no wheeze or scattered crackles, overall non labored ABDOMEN; Soft, non tender or distended, BS x 4 normactive EXT: No LE edema, Pedal pulses 1+, radial pulses 2+, right upper extremity in a sling PSYCH: Mood and affect is appropriate Telemetry: A. fib rate controlled at 73-98 - Assessment and Plan (1) Sepsis Current Visit: Yes Status: Acute Assessment and Plan: Quite unlikely- urine culture was no growth, blood culture negative so far 48 hours. leukocytosis resolved despite dc antibiotics yesterday. Of note she was treated for kleb UTI and was on flagyl and cipro when she came in as a transfer. These were the back bone for the decision to dc antibiotics yesterday, she is already high risk for Cdiff. Patient yesterday evening met criteria for sepsis- heart rate of 120s to 140s, leukocytosis of 12.7 and altered mental status. Urine culture does reveal positive nitrites with small leukocyte estarase but with many epithelial cells of note this was a clean-catch. Blood and urine cultures pending, patient was already on IV Flagyl and Cipro from high initial presentation from [facility] for diverticulitis. These antibodies were discontinued and she was empirically covered with cefepime and vancomycin. WBC this morning trended down to 12.1 although patient lost IV access. Given the new finding of hyperammonia and likely hepatic encephalopathy the diagnosis of infectious encephalopathy from sepsis is low on the differential. She remains afebrile IV access is an issue, CVC is an option however last resort since she no longer appears septic has no real indication for subjective the patient for such procedure. If any we could manage her UTI with oral antibiotics and clinically correlate all discontinue all antibiotics if repeat WBC normalized since it is quite likely that tachycardia was due to atrial flutter which RVR of note she has a history of atrial fibrillation and she is now rate controlled and her leukocytosis could be explained as reactive and her AMS could get but it hyperammonia (2) Metabolic encephalopathy Current Visit: Yes Status: Acute Assessment and Plan: Resolved Suspect either a lab error with her hyperammonia or she does have hepatic encephalopathy. Elicited history from the patient is limited by her dementia. This morning she was combative earlier, but during my encounter with the patient she appears to be back to baseline we will continue monitoring clinically correlate (3) Hyperammonemia Current Visit: Yes Status: Acute Assessment and Plan: Ammonia 43-41 will trend and make lactulose prn. Ammonia level yesterday was 76, repeat ammonia is pending she was started on lactulose this morning. Etiology remains unclear. elicited a history from the patient is limited by her underlying dementia. We will trend ammonia continue lactulose, trend LFTs and ammonia (4) Fracture of humerus, proximal, right, closed Current Visit: Yes Status: Acute Assessment and Plan: Status post R TSR, Reverse. Stable postoperative day 3, patient was from an ECF would likely discharge back to ECF tomorrow Of note:Pt transferred from [facility] due to acute fracture of R humerus with displacement. Admit to med surg. Ortho plan for surgical intervention however cardiac clearance is deemed necessary given high complaints of chest pain yesterday and mildly elevated troponin. Her metabolic equivalent is less than 4. cardiology consultation is pending (5) Troponin I above reference range Current Visit: Yes Status: Acute Assessment and Plan: Patient last night was completed and no chest pain, Reviewed the EKG from yesterday dated 04/29/2019 21:32- sinus bradycardia rate at 57, with ST depression and T-wave inversion noted in limb lead 1 aVL V4 V5 and V6. Patient this morning denies any chest pain, given her history of CAD status post CABG many years ago her troponin was trended 0.05, 0.04 , trop trended down 0.03, she was seen by cardiology team. She denies any further chest pain (6) CAD (coronary artery disease) Current Visit: Yes Status: Acute Assessment and Plan: history of CABG, she is only on the metoprolol tartrate she will benefit from statin therapy per cardiology's note patient has allergies. asa ,RAFFI inhibitor as well as optimize her medical regimen (7) Atrial fibrillation Current Visit: Yes Status: Chronic Assessment and Plan: Blood pressure soft while on the diltiazem drip will DC, patient only on Lopressor twice a day we will switch to Toprol XL 50mg daily but give 25mg twice a day due to low bp hope she can tolerate Yesterday evening she had atrial flutter with rapid ventricular response which was treated with IV metoprolol in addition to her oral metoprolol. Telemetry this morning revealed rate controlled atrial fibrillation EKG last month does reveal normal sinus rhythm although bradycardic upon review of her home medications not currently on any anticoagulation therapy although she is on metoprolol 25 twice a day continue to monitor on telemetry, normal sinus rhythm on telemetry at 74 (8) UTI (urinary tract infection) Current Visit: Yes Status: Acute Assessment and Plan: Pt recently diagnoses with Klebsiella UTI. At [facility] and I believe was started on antibiotic treatment. Urine culture was negative here (9) Acute diverticulitis Current Visit: Yes Status: Acute Assessment and Plan: Pt has been on Cipro/Flagy, Abdomen exam was benign, she did receive 3 days wo rth of treatment here. (10) Hypertension Current Visit: Yes Status: Chronic Assessment and Plan: Low-normal BP while on diltiazem drip, she will be switched to toprol xl 50 mg per day divided doses (11) GERD (gastroesophageal reflux disease) Current Visit: Yes Status: Chronic Assessment and Plan: Continue PPI (12) Seizure disorder Current Visit: Yes Status: Chronic Assessment and Plan: Pt had acute seizure at [facility] - dilantin level low and was on quinolone (? low seizure threshold), Loaded with IV Dilantin and dose increased. Prior to seizures at [facility] patient denies any frequency seizure activity, a phenytoin level is now therapeutic we will continue therapy and place patient on seizure protocol. Watch out for any seizure-like activity, we will check a phenytoin level tomorrow prior to discharge DVT Prophylaxis: SCDs given the recent surgery - Time Spent with Patient Total time spent is greater than 50% in coordination of care (as documented) at patient's floor/unit and/or counseling patient: Internal Medicine: Result - Labs CBC & Chem 7: 05/03/19 05:28 05/03/19 05:28 Labs: Short CBC 05/03/19 Range/Units 05:28 WBC 11.1 (4.3-11.1) K/mcL Hgb 9.0 L (11.5-15.4) g/dL Hct 28.8 L (35.3-44.9) % Plt Count 224 (140-400) K/mcL Neutrophils # 7.3 (1.6-8.9) K/mcL BMP 05/03/19 05:28 Sodium 136 Potassium 3.6 Chloride 103 Carbon Dioxide 26 BUN 13 Creatinine 0.66 Glucose 95 Calcium 7.8 L Liver Function 05/03/19 Range/Units 05:28 Total Bilirubin 0.4 (0.3-1.0) mg/dL Direct Bilirubin 0.1 (0.0-0.2) mg/dL AST 34 (13-39) Units/L ALT 37 (7-52) Units/L Alkaline Phosphatase 85 (34-104) Units/L Albumin 2.9 L (3.5-5.7) g/dL Consult Discharge Plan - Plan Referrals: NONE,PCP [Primary Care Provider] - (1) Sepsis Qualifiers: Sepsis type: sepsis due to unspecified organism Sepsis acute organ dysfunction status: with acute organ dysfunction Severe sepsis acute organ dysfunction type: encephalopathy Severe sepsis shock status: without septic shock Qualified Code(s): A41.9 - Sepsis, unspecified organism; R65.20 - Severe sepsis without septic shock; G93.40 - Encephalopathy, unspecified (4) Fracture of humerus, proximal, right, closed Qualifiers: Encounter type: initial encounter Fracture morphology: other fracture Fracture alignment: displaced Qualified Code(s): S42.291A - Other displaced fracture of upper end of right humerus, initial encounter for closed fracture (6) CAD (coronary artery disease) Qualifiers: Coronary Disease-Associated Artery/Lesion type: bypass graft [place] vs. transplanted heart: [place] heart Associated angina: with other forms of angina Qualified Code(s): I25.708 - Atherosclerosis of coronary artery bypass graft(s), unspecified, with other forms of angina pectoris (7) Atrial fibrillation Qualifiers: Atrial fibrillation type: chronic Qualified Code(s): I48.2 - Chronic atrial fibrillation (8) UTI (urinary tract infection) Qualifiers: Urinary tract infection type: acute cystitis Hematuria presence: without hematuria Qualified Code(s): N30.00 - Acute cystitis without hematuria (10) Hypertension Qualifiers: Hypertension type: essential hypertension Qualified Code(s): I10 - Essential (primary) hypertension (11) GERD (gastroesophageal reflux disease) Qualifiers: Esophagitis presence: esophagitis presence not specified Qualified Code(s): K21.9 - Gastro-esophageal reflux disease without esophagitis
[2019-05-03] MEDS: Metoprolol XL (24 HR) Succ 25 MG TAB.ER.24H PO SCH (20:02)
[2019-05-04 05:37] LABS: BUN/Creatinine Ratio 30 (6-26); Blood Urea Nitrogen 19 mg/dL (8-23); Carbon Dioxide 26 mEq/L (23-29); Chloride 105 mEq/L (98-107); Glucose 89 mg/dL (70-105); Osmolality,Calculated 286 (280-300); Potassium 3.8 mEq/L (3.5-5.1); Sodium 137 mEq/L (136-145); eGFR For African Americans > 60 (> 60); eGFR For Non-African Americans > 60 (> 60)
[2019-05-04 05:38] LABS: Basophils % 0.3 %; Eosinophils # 0.4 K/mcL (0.0-0.6); Eosinophils % 4.5 %; Hematocrit 30.5 % (35.3-44.9); Hemoglobin 9.2 g/dL (11.5-15.4); Immature Granulocytes % 0.5 % (0-4); Lymphocytes # 1.6 K/mcL (0.6-4.6); Lymphocytes % 17.1 %; Mean Corpuscular HGB Conc 30.2 g/dL (31.6-35.5); Mean Corpuscular Hemoglobin 27.1 pg (28.0-33.3); Mean Corpuscular Volume 89.7 fL (83.0-100.0); Mean Platelet Volume 9.5 fL (9.4-12.4); Monocytes # 1.2 K/mcL (0.0-1.3); Neutrophils # 5.9 K/mcL (1.6-8.9); Platelet Count 252 K/mcL (140-400); Segmented Neutrophils % 64.6 %; White Blood Count 9.1 K/mcL (4.3-11.1)
[2019-05-04 06:14] LABS: Anisocytosis 2+ (Not Present); Platelet Estimate Normal (Normal); Poikilocytosis 1+ (Not Present)
[2019-05-04] MEDS: Metoprolol XL (24 HR) Succ 25 MG TAB.ER.24H PO SCH (10:09)
[2019-05-04] MEDS: Lactobacillus 1 EACH CAP.SPRINK PO SCH (10:09)
[2019-05-04] MEDS: Lactulose Oral Soln 20 GM/30 ML UDC PO SCH (10:09)
[2019-05-04] MEDS: Cyanocobalamin (B-12) 1,000 MCG TABLET PO SCH (10:09)
[2019-05-04] MEDS ORDERED: Acetaminophen 325 MG TABLET PO ONE (12:09)
[2019-05-04 12:51] VITALS: BP 108/54
--- NOTE | 2019-05-04 16:38 | Discharge Summary ---
- NOTES TO OUTPATIENT PROVIDER Notes to Outpatient Provider: Post hospital discharge for right humerus fracture status post surgical intervention. Patient will need to follow-up with the orthopedic physician as outpatient she will need routine ammonia labs Orders not resulted at time of discharge: Pending orders 05/01/19 08:35 Stool guiac [Occult Blood,Stool] [BF] Stat 05/01/19 17:58 Culture,Blood [BC] Stat Date of Encounter: 05/04/19 Time of Encounter: 16:36 - Discharge Diagnosis (1) Fracture of humerus, proximal, right, closed Priority: Primary Status: Acute Assessment and Plan: Status post R TSR, Reverse. Stable postoperative day 4, patient was from an ECF would likely discharge back to [facility] today Of note:Pt transferred from [facility] due to acute fracture of R humerus with displacement. Admit to med surg. Ortho plan for surgical intervention however cardiac clearance is deemed necessary given high complaints of chest pain yes terday and mildly elevated troponin. Her metabolic equivalent is less than 4. cardiology consultation is pending Qualifiers: Encounter type: initial encounter Fracture morphology: other fracture Fracture alignment: displaced Qualified Code(s): S42.291A - Other displaced fracture of upper end of right humerus, initial encounter for closed fracture (2) Sepsis Priority: Secondary Status: Acute Assessment and Plan: Quite unlikely- urine culture was no growth, blood culture negative so far 48 hours. leukocytosis resolved despite dc antibiotics yesterday. Of note she was treated for kleb UTI and was on flagyl and cipro when she came in as a transfer. These were the back bone for the decision to dc antibiotics yesterday, she is already high risk for Cdiff. Patient yesterday evening met criteria for sepsis- heart rate of 120s to 140s, leukocytosis of 12.7 and altered mental status. Urine culture does reveal positive nitrites with small leukocyte estarase but with many epithelial cells of note this was a clean-catch. Blood and urine cultures pending, patient was already on IV Flagyl and Cipro from high initial presentation from [facility] for diverticulitis. These antibodies were discontinued and she was empirically covered with cefepime and vancomycin. WBC this morning trended down to 12.1 although patient lost IV access. Given the new finding of hyperammonia and likely hepatic encephalopathy the diagnosis of infectious encephalopathy from sepsis is low on the differential. She remains afebrile IV access is an issue, CVC is an option however last resort since she no longer appears septic has no real indication for subjective the patient for such procedure. If any we could manage her UTI with oral antibiotics and clinically correlate all discontinue all antibiotics if repeat WBC normalized since it is quite likely that tachycardia was due to atrial flutter which RVR of note she has a history of atrial fibrillation and she is now rate controlled and her leukocytosis could be explained as reactive and her AMS could get but it hyperammonia Qualifiers: Sepsis type: sepsis due to unspecified organism Sepsis acute organ dysfunction status: with acute organ dysfunction Severe sepsis acute organ dysfunction type: encephalopathy Severe sepsis shock status: without septic shock Qualified Code(s): A41.9 - Sepsis, unspecified organism; R65.20 - Severe sepsis without septic shock; G93.40 - Encephalopathy, unspecified (3) Metabolic encephalopathy Priority: Secondary Status: Acute Assessment and Plan: Resolved Suspect either a lab error with her hyperammonia or she does have hepatic encephalopathy. Elicited history from the patient is limited by her dementia. This morning she was combative earlier, but during my encounter with the patient she appears to be back to baseline we will continue monitoring clinically correlate (4) Hyperammonemia Priority: Secondary Status: Acute Assessment and Plan: Ammonia 43-41 will trend and make lactulose prn. Ammonia level yesterday was 76, repeat ammonia is pending she was started on lactulose this morning. Etiology remains unclear. elicited a history from the patient is limited by her underlying dementia. We will trend ammonia continue lactulose, trend LFTs and ammonia (5) Troponin I above reference range Priority: Secondary Status: Acute Assessment and Plan: Patient last night was completed and no chest pain, Reviewed the EKG from yesterday dated 04/29/2019 21:32- sinus bradycardia rate at 57, with ST depression and T-wave inversion noted in limb lead 1 aVL V4 V5 and V6. Patient this morning denies any chest pain, given her history of CAD status post CABG many years ago her troponin was trended 0.05, 0.04 , trop trended down 0.03, she was seen by cardiology team. She denies any further chest pain (6) CAD (coronary artery disease) Priority: Secondary Status: Acute Assessment and Plan: history of CABG, she is only on the metoprolol tartrate she will benefit from statin therapy per cardiology's note patient has allergies. asa ,RAFFI inhibitor as well as optimize her medical regimen Qualifiers: Coronary Disease-Associated Artery/Lesion type: bypass graft [place] vs. transplanted heart: [place] heart Associated angina: with other forms of angina Qualified Code(s): I25.708 - Atherosclerosis of coronary artery bypass graft(s), unspecified, with other forms of angina pectoris (7) Atrial fibrillation Priority: Secondary Status: Chronic Assessment and Plan: Blood pressure soft while on the diltiazem drip will DC, patient only on Lopressor twice a day we will switch to Toprol XL 50mg daily but give 25mg twice a day due to low bp hope she can tolerate Yesterday evening she had atrial flutter with rapid ventricular response which was treated with IV metoprolol in addition to her oral metoprolol. Telemetry this morning revealed rate controlled atrial fibrillation EKG last month does reveal normal sinus rhythm although bradycardic upon review of her home medications not currently on any anticoagulation therapy although she is on metoprolol 25 twice a day continue to monitor on telemetry, normal sinus rhythm on telemetry at 74 Qualifiers: Atrial fibrillation type: chronic Qualified Code(s): I48.2 - Chronic atrial fibrillation (8) UTI (urinary tract infection) Priority: Secondary Status: Acute Assessment and Plan: Pt recently diagnoses with Klebsiella UTI. At [facility] and I believe was started on antibiotic treatment. Urine culture was negative here Qualifiers: Urinary tract infection type: acute cystitis Hematuria presence: without hematuria Qualified Code(s): N30.00 - Acute cystitis without hematuria (9) Acute diverticulitis Priority: Secondary Status: Acute Assessment and Plan: Pt has been on Cipro/Flagy, Abdomen exam was benign, she did receive 3 days worth of treatment here. (10) Hypertension Priority: Secondary Status: Chronic Assessment and Plan: Low-normal BP while on diltiazem drip, she will be switched to toprol xl 50 mg per day divided doses Qualifiers: Hypertension type: essential hypertension Qualified Code(s): I10 - Essential (primary) hypertension (11) GERD (gastroesophageal reflux disease) Priority: Secondary Status: Chronic Assessment and Plan: Continue PPI Qualifiers: Esophagitis presence: esophagitis presence not specified Qualified Code(s): K21.9 - Gastro-esophageal reflux disease without esophagitis (12) Seizure disorder Priority: Secondary Status: Chronic Assessment and Plan: Pt had acute seizure at [facility] - dilantin level low. Prior to seizures at [facility] patient denies any frequency seizure activity, a phenytoin level is now therapeutic we will continue therapy and place patient on seizure protocol. Patient had no seizure activity during his hospitalization phenytoin level at discharge is 10.6 which is therapeutic Hospital course: Ms. Oconnor is a 88 year old female [facility] due to distal to the right humerus. Patient had surgical intervention however hospitalization was complicated by her atrial fibrillation with rapid ventricular response, metabolic encephalopathy was admitted to hyperammonemia patient had no history of prior cirrhosis of liver pathology. The patient was treated with metoprolol IV Lopressor was switched to Toprol-XL twice daily and she received several doses of lactulose. She will be discharged with when necessary lactulose. She completed treatment for her diverticulitis with Flagyl and Cipro during his hospital stay. Would recommend patient gets routine ammonia level checked and she might benefit from outpatient workup for any potential hepatic pathology - Time Spent with Patient Total time spent providing and/or coordinating discharge services: - Discharge Medications Prescriptions: New Acetaminophen [Pain Relief] 500 mg PO Q6H 7 Days #28 tablet Docusate [Colace] 100 mg PO BID 5 Days #10 capsule Ibuprofen [Motrin] 600 mg PO Q6HR PRN 7 Days #28 tab PRN Reason: Pain Lactobacillus [Culturelle] 1 each PO BID #60 cap.sprink Phenytoin ER [Dilantin ER] 100 mg PO TID #30 capsule Lactulose 20 gm PO QDPC #360 ml Cyanocobalamin (B-12) [Vitamin B12] 1,000 mcg PO DAILY #30 tablet Sertraline [Zoloft] 50 mg PO DAILY #30 tablet Metoprolol XL (24 HR) Succ [Toprol XL] 25 mg PO BID #60 tab.er.24h HYDROcodone/Acet 5/325 mg [[place] 5-325 mg] 1 tab PO Q6H PRN 7 Days #28 tab PRN Reason: Severe Pain Continued Pantoprazole Sodium [Protonix] 40 mg PO DAILY Ferrous Sulfate [Iron] 325 mg PO DAILY LORazepam [Ativan] 0.5 mg PO DAILY PRN 7 Days #7 tablet PRN Reason: Anxiety Discontinued Metoprolol [Lopressor] 25 mg PO BID Phenytoin ER [Dilantin ER] 100 mg PO BID Sertraline [Zoloft] 50 mg PO DAILY Home Medications: Ferrous Sulfate [Iron] 325 mg PO DAILY 04/29/19 [History] Pantoprazole Sodium [Protonix] 40 mg PO DAILY 04/29/19 [History] Acetaminophen [Pain Relief] 500 mg PO Q6H 7 Days #28 tablet 04/30/19 [Rx] Docusate [Colace] 100 mg PO BID 5 Days #10 capsule 04/30/19 [Rx] Ibuprofen [Motrin] 600 mg PO Q6HR PRN 7 Days #28 tab 04/30/19 [Rx] Cyanocobalamin (B-12) [Vitamin B12] 1,000 mcg PO DAILY #30 tablet 05/04/19 [Rx] HYDROcodone/Acet 5/325 mg [[place] 5-325 mg] 1 tab PO Q6H PRN 7 Days #28 tab 05/04/19 [Rx] LORazepam [Ativan] 0.5 mg PO DAILY PRN 7 Days #7 tablet 05/04/19 [Rx] Lactobacillus [Culturelle] 1 each PO BID #60 cap.sprink 05/04/19 [Rx] Lactulose 20 gm PO QDPC #360 ml 05/04/19 [Rx] Metoprolol XL (24 HR) Succ [Toprol XL] 25 mg PO BID #60 tab.er.24h 05/04/19 [Rx] Phenytoin ER [Dilantin ER] 100 mg PO TID #30 capsule 05/04/19 [Rx] Sertraline [Zoloft] 50 mg PO DAILY #30 tablet 05/04/19 [Rx] Allergies/Adverse Reactions: Allergy/AdvReac Type Severity Reaction Status Date / Time alendronate sodium Allergy See Verified 04/29/19 16:17 [From Fosamax] Comments atorvastatin [From Lipitor] Allergy See Verified 04/29/19 16:17 Comments ibandronate sodium Allergy See Verified 04/29/19 16:17 [From Boniva] Comments morphine Allergy See Verified 04/29/19 16:17 Comments Penicillins Allergy See Verified 04/29/19 16:17 Comments Procaine [From Novocain] Allergy See Verified 04/29/19 16:17 Comments simvastatin [From Zocor] Allergy See Verified 04/29/19 16:17 Comments Sulfa (Sulfonamide Allergy See Verified 04/29/19 16:17 Antibiotics) Comments tuberculin,PPD,multi-puncture Allergy See Verified 04/29/19 16:17 Comments Date of admission: 05/01/19 08:16 Primary care physician: PCP NONE Consults: 04/29/19 15:29 Consult to Occupational Therapy [CONS] Routine Comment: Evaluate, develop and implement POC Reason for Consult: Humerus fracture Does patient have active BEDREST order?: No Is patient medically & hemodynamically stable?: Yes Patient assessed for mobility or mobilized this visit?: Yes Consult to Physician [CONS] Routine Consulting Provider: Dean Gonzales Reason for Consult: Fracture humerus - notified by ED Call Completed: Yes 04/29/19 15:30 Consult to Refuse Collector Supervisor [CONS] Routine Reason for SW Consult: Discharge planning 04/29/19 16:35 Consult to Pastoral Services [CONS] Routine Comment: 04/29/19 16:59 Consult to Cardiology [CONS] Routine Comment: Consulting Provider: Cardiology Chapis Reason for Consult: Hx a fib. Shoulder fracture. Cardiac clearance please Call Completed: Yes 04/30/19 18:20 Consult to Occupational Therapy [CONS] Routine Comment: post shoulder surgery Reason for Consult: post shoulder surgery Does patient have active BEDREST order?: No Is patient medically & hemodynamically stable?: Yes Consult to Physical Therapy [CONS] Routine Comment: post shoulder surgery Reason for Consult: post shoulder surgery Does patient have active BEDREST order?: No Is patient medically & hemodynamically stable?: Yes Consult to Refuse Collector Supervisor [CONS] Routine Reason for SW Consult: shoulder surgery RT Post Op Consult [CONS] Routine Discharging clinician: Millicent Solis Anticipated date of discharge: 05/04/19 - Constitutional Vitals: Temp Pulse Resp BP Pulse Ox 97.9 F 72 16 108/54 97 05/04/19 12:30 05/04/19 12:30 05/04/19 12:30 05/04/19 12:30 05/04/19 12:30 General appearance: Present: A&O X 3 Exam: GEN: NAD, A&O x 3, Pleasant and conversant SKIN: [place] warm acyanotic not jaundice HEART: iregularly regular rate and rhythm LUNGS: CTA somewhat diminished no wheeze or crackles, overall non labored ABDOMEN; Soft, non tender or distended, BS x 4 normactive EXT: No LE edema, Pedal pulses 1+, radial pulses 2+, right upper extremity in sling, surgical scar appears to be healing PSYCH: Mood and affect is appropriate - Patient Status Disposition: Transfer SNF Condition: Fair Functional capacity at discharge: uses cane/walker Overall status at discharge: patient is progressing back to baseline - Discharge Instructions Instructions: Arm Fracture in Adults (DC) Follow Up With: Laura Beckman PAC [Physician Mental Health Specialist] - 05/07/19 10:00 am (Please follow up as schedule...) NONE,PCP [Primary Care Provider] - - Diet and Activity Activity: as per physical therapy Diet: low fat, low cholesterol, low salt diet
--- NOTE | 2019-05-04 16:59 | Physician Discharge Referral ---
ExtendedCare Referral Info Provider in Charge after Transfer: PCP - Diagnosis (1) Fracture of humerus, proximal, right, closed Priority: Primary Status: Acute (2) Sepsis Priority: Secondary Status: Acute (3) Metabolic encephalopathy Priority: Secondary Status: Acute (4) Hyperammonemia Priority: Secondary Status: Acute (5) Troponin I above reference range Priority: Secondary Status: Acute (6) CAD (coronary artery disease) Priority: Secondary Status: Acute (7) Atrial fibrillation Priority: Secondary Status: Chronic (8) UTI (urinary tract infection) Priority: Secondary Status: Acute (9) Acute diverticulitis Priority: Primary Status: Acute (10) Hypertension Priority: Secondary Status: Chronic (11) GERD (gastroesophageal reflux disease) Priority: Secondary Status: Chronic (12) Seizure disorder Priority: Secondary Status: Chronic Prognosis: Fair Aware of Diagnosis: Patient - Transfer Medications Prescriptions: LORazepam [Ativan] 0.5 mg PO DAILY PRN 7 Days #7 tablet PRN Reason: Anxiety Lactobacillus [Culturelle] 1 each PO BID #60 cap.sprink Phenytoin ER [Dilantin ER] 100 mg PO TID #30 capsule Lactulose 20 gm PO QDPC #360 ml HYDROcodone/Acet 5/325 mg [[place] 5-325 mg] 1 tab PO Q6H PRN 7 Days #28 tab PRN Reason: Severe Pain Metoprolol XL (24 HR) Succ [Toprol XL] 25 mg PO BID #60 tab.er.24h Cyanocobalamin (B-12) [Vitamin B12] 1,000 mcg PO DAILY #30 tablet Sertraline [Zoloft] 50 mg PO DAILY #30 tablet Home Medications: Ferrous Sulfate [Iron] 325 mg PO DAILY 04/29/19 [History] Pantoprazole Sodium [Protonix] 40 mg PO DAILY 04/29/19 [History] Acetaminophen [Pain Relief] 500 mg PO Q6H 7 Days #28 tablet 04/30/19 [Rx] Docusate [Colace] 100 mg PO BID 5 Days #10 capsule 04/30/19 [Rx] Ibuprofen [Motrin] 600 mg PO Q6HR PRN 7 Days #28 tab 04/30/19 [Rx] Cyanocobalamin (B-12) [Vitamin B12] 1,000 mcg PO DAILY #30 tablet 05/04/19 [Rx] HYDROcodone/Acet 5/325 mg [[place] 5-325 mg] 1 tab PO Q6H PRN 7 Days #28 tab 05/04/19 [Rx] LORazepam [Ativan] 0.5 mg PO DAILY PRN 7 Days #7 tablet 05/04/19 [Rx] Lactobacillus [Culturelle] 1 each PO BID #60 cap.sprink 05/04/19 [Rx] Lactulose 20 gm PO QDPC #360 ml 05/04/19 [Rx] Metoprolol XL (24 HR) Succ [Toprol XL] 25 mg PO BID #60 tab.er.24h 05/04/19 [Rx] Phenytoin ER [Dilantin ER] 100 mg PO TID #30 capsule 05/04/19 [Rx] Sertraline [Zoloft] 50 mg PO DAILY #30 tablet 05/04/19 [Rx] Allergies/Adverse Reactions: Allergy/AdvReac Type Severity Reaction Status Date / Time alendronate sodium Allergy See Verified 04/29/19 16:17 [From Fosamax] Comments atorvastatin [From Lipitor] Allergy See Verified 04/29/19 16:17 Comments ibandronate sodium Allergy See Verified 04/29/19 16:17 [From Boniva] Comments morphine Allergy See Verified 04/29/19 16:17 Comments Penicillins Allergy See Verified 04/29/19 16:17 Comments Procaine [From Novocain] Allergy See Verified 04/29/19 16:17 Comments simvastatin [From Zocor] Allergy See Verified 04/29/19 16:17 Comments Sulfa (Sulfonamide Allergy See Verified 04/29/19 16:17 Antibiotics) Comments tuberculin,PPD,multi-puncture Allergy See Verified 04/29/19 16:17 Comments - Respiratory Orders Oxygen / L per min (2 liters nc) Smoking Cessation: Smoking cessation has been advised. For more information, call the [place] Tobacco Quit Line at 6-089-FIPX-NOW. - Advance Directives Code Status: DNR-Arrest/Don't Intubate - Mobility Orders Ambulate - Rehabiliation Orders Rehab Potential: Fair Rehab Orders: Evaluation for Physical Therapy, Evaluation for Occupational Therapy - Diet Orders Cardiac CERTIFICATION: I certify that the transfer of the above named patient to an Extended Care Facility is necessary for the continuing treatment of the diagnosis listed. The above information is true and accurate reflection of patient's current condition. Confidential - Redisclosure prohibited without a patient's written consent.
--- NOTE | 2019-05-05 09:37 | Electrocardiograph Report ---
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
== END 2019-05-04 18:16 | DRG 483 ==
LOC: 3NENU → SUATTDRO 15:18 → 3NENU 05-01 12:39 → 2ANU 05-03 14:54
PROVIDERS: ADMIT Internal Medicine; ATTEND Pharmacist